=== PATIENT | female | born 1980 | race Caucasian/White ===

== ENCOUNTER 2018-07-20 17:55 | Inpatient (IN) | payer MEDICAID ==
[2018-07-20] MEDS ORDERED: LACTATED RINGERS 500 ML IV ONE (18:13)
--- NOTE | 2018-07-20 22:26 | Ultrasound Report ---
PROCEDURE: US OB LIMITED TECHNIQUE: PROCEDURE: US OB LIMITED TECHNIQUE: Real-time limited sonographic examination was performed for evaluation of placenta and am niotic fluid for each fetus with image documentation (1 or more fetuses). HISTORY: labor COMPARISONS: None . FINDINGS: There is a twin intrauterine gestation Fetus A: Transverse lie with head to maternal left. heart rate is 1 56 bpm. Placenta is posterior with grade 1 maturity. There is no evidence of placenta previa or placental abruption. Amniotic fluid index is 7.0 cm. Fetus B: lie is variable between cephalic and transverse with head to maternal right. heart rate is 142 bpm. Placenta Is anterior. There is no evidence of placenta previa or placental abruption with grade 2 maturity. Amniotic fluid index is 5.3 cm. IMPRESSION: Twin intrauterine gestation without evidence of placenta previa or placental abruption. Amniotic fluid index is within normal limits for both fetuses. This document is electronically signed by Juan Pablo Khan MD., July 20 2018 10:24:09 PM ET
--- NOTE | 2018-07-20 22:28 | Ultrasound Report ---
PROCEDURE: US OB BPP WO NON-STRESS TECHNIQUE: Sonographic evaluation for breathing, movement, tone, and amniotic flui d volume was performed. HISTORY: Rule out SROM COMPARISONS: None . FINDINGS: FETUS Twin intrauterine gestation is noted. Twin A findings: Amniotic fluid volume Normal-score 2. At least one vertical pocket >2 cm or more in vertical axis . breathing: Normal-score 2 . movement: Normal-score 2 . tone: Normal-score 2 . Score: 8 of 8 . IMPRESSION: Normal biophysical profile Twin A . This document is electronically signed by Juan Pablo Khan MD., July 20 2018 10:25:59 PM ET
--- NOTE | 2018-07-20 22:30 | Ultrasound Report ---
PROCEDURE: US OB BPP EA ADD EXAM TECHNIQUE: Sonographic evaluation for breathing, movement, tone, and amniotic flui d volume was performed. HISTORY: Rule out SROM COMPARISONS: None . FINDINGS: FETUS Twin intrauterine gestation Twin B findings: Amniotic fluid volume Normal-score 2. At least one vertical pocket >2 cm or more in vertical axis . breathing: Normal-score 2 . movement: Normal-score 2 . tone: Normal-score 2 . Score: 8 of 8 . IMPRESSION: Normal biophysical profile Twin B . This document is electronically signed by Juan Pablo Khan MD., July 20 2018 10:28:32 PM ET
[2018-07-20] MEDS ORDERED: ZOFRAN IV PRN (22:34)
[2018-07-20] MEDS ORDERED: AMPICILLIN/NS 2 GM/100 ML 2 GM/100 ML BAG IV ONE (22:34)
[2018-07-20] MEDS ORDERED: MAGNESIUM SULFATE 4GM/100ML 4 GM/100 ML BAG IV ONE (22:34)
[2018-07-20] MEDS ORDERED: SENOKOT S PO PRN (22:34)
[2018-07-20] MEDS ORDERED: COLACE PO PRN (22:34)
--- NOTE | 2018-07-20 22:46 | History and Physical Report ---
History of Present Illness Date of examination: 07/20/18 Chief complaint: Cervical dilatation History of present illness: Pt is a 37yo HF EDC 10/23/18; EGA 26 3/7 weeks Twin gestation presents from [facility] [employer] office for advanced cervical dilatation - 4cm. She is sent to receive IV antibiotics, steroids and IV Magnesium sulfate. records are not available at this time. Past History Past Medical History: no pertinent history Past Surgical History: section Social history: no significant social history, - Obstetrical History : 6 Medications and Allergies Allergies Allergy/AdvReac Type Severity Reaction Status Date / Time No Known Allergies Allergy Unverified 07/20/18 18:13 Active Meds: Active Medications Acetaminophen (Tylenol) 650 mg PO Q4H PRN PRN Reason: Pain MILD(1-3)/Fever >100.5/HEWITT Dexamethasone (Decadron) 6 mg IM Q12HR TANJA Stop: 07/22/18 10:01 Docusate Sodium (Colace) 100 mg PO Q12H PRN PRN Reason: Constipation Ampicillin Sodium (Ampicillin/Ns 1 Gm/50 Ml) 1 gm in 50 mls @ 100 mls/hr IV Q4HR TANJA; Protocol Ampicillin Sodium (Polycillin/Ns 2 Gm/100 Ml) 2 gm in 100 mls @ 100 mls/hr IV ONCE ONE; Protocol Stop: 07/20/18 23:33 Lactated Ringer's (Lactated Ringers) 1,000 mls @ 125 mls/hr IV DIRECT TANJA Magnesium Sulfate (Magnesium Sulfate 40gm/1000ml) 40 gm in 1,000 mls @ 50 mls/hr IV DIRECT TANJA Magnesium Sulfate (Magnesium Sulfate 4gm/100ml) 4 gm in 100 mls @ 300 mls/hr IV ONCE ONE Stop: 07/20/18 22:53 Multivitamins/Iron/Calcium ( Vitamin) 1 each PO QDAY TANJA Ondansetron HCl (Zofran) 4 mg IV Q6H PRN PRN Reason: Nausea And Vomiting Senna/Docusate Sodium (Senokot S) 2 tab PO Q12H PRN PRN Reason: Laxative Effect Simethicone (Mylicon) 80 mg PO Q6H PRN PRN Reason: Gas pain Review of Systems All systems: negative - Vital Signs Vital signs: Vital Signs Pulse BP 92 H 120/57 03/13/19 18:23 07/20/18 18:23 Temp Pulse Resp BP Pulse Ox 98.5 F 95 H 18 113/57 07/20/18 21:05 07/20/18 21:04 07/20/18 21:05 07/20/18 21:04 - Physical Exam Cardiovascular: Regular rate Abdomen: Positive: normal appearance, soft Genitourinary (Female): Positive: normal external genitalia - Obstetrical FHR: category 1 Uterine Contraction Monitor Mode: External Cervical Dilatation: 4 (in office) Results Result Diagrams: 07/20/18 21:20 All other labs normal. Ultrasound: report reviewed Assessment and Plan - Patient Problems (1) 26 weeks gestation of Onset Date: 07/20/18 Current Visit: Yes Status: Acute Plan to address problem: A: IUP @ 26 3/7 weeks Twin gestation Advanced cervical dilatation P: Admit to L&D for IV hydration, IV Magnesium sulfate, IV Antibiotics and Steroids Obtain [facility] consultation Obtain records (2) Twin gestation in third trimester Onset Date: 07/20/18 Current Visit: Yes Status: Acute Qualifiers: Multiple gestation type: unable to determine placenta and amniotic sac number Qualified Code(s): O30.093 - Twin , unable to determine number of placenta and number of amniotic sacs, third trimester
[2018-07-20 22:48] LABS: Hematocrit 30.6 % (30.3-42.9); Hemoglobin 10.5 gm/dl (10.1-14.3); Mean Corpuscular HGB Conc 34 % (30-34); Mean Corpuscular Volume 95 fl (79-97); Platelet Count 298 K/mm3 (140-440); Red Blood Count 3.21 M/mm3 (3.65-5.03); Red Cell Distribution Width 13.3 % (13.2-15.2)
[2018-07-20] MEDS ORDERED: MAGNESIUM SULFATE 40GM/1000ML 40 GM/1,000 ML BAG IV SCH (23:00)
[2018-07-20] MEDS: DECADRON IM SCH (23:16)
[2018-07-21 03:13] LABS: Bilirubin,Urine NEG (Negative); Blood,Urine MOD (Negative); Color,Urine Yellow (Yellow); Mucus,Urine 1+ /HPF; Protein,Urine <15 mg/dL mg/dL (Negative); Urobilinogen,Urine < 2.0 mg/dL (<2.0)
[2018-07-21] MEDS: AMPICILLIN/NS 1 GM/50 ML 1 GM/50 ML BAG IV SCH ×5 (03:34→18:20)
[2018-07-21] MEDS: LACTATED RINGERS 1,000 ML IV SCH (05:40)
--- NOTE | 2018-07-21 09:33 | Progress Note ---
Assessment and Plan - Patient Problems (1) 26 weeks gestation of Onset Date: 07/20/18 Current Visit: Yes Status: Acute Plan to address problem: lung maturity- last dose of steroids due today. Stop magnesium once steroids complete. Ampicillin for GBS prophylaxis. Continue bedrest. [facility] consult pending (2) Twin gestation in third trimester Onset Date: 07/20/18 Current Visit: Yes Status: Acute Qualifiers: Multiple gestation type: unable to determine placenta and amniotic sac number Qualified Code(s): O30.093 - Twin , unable to determine number of placenta and number of amniotic sacs, third trimester Plan to address problem: Malpresentation. transverse/transverse [employer] patient on recommended mode of delivery via csection due to the risk of head entrapment, brachial plexus delivery. Subjective - Subjective Principal diagnosis: labor Interval history: 37yo 26 4/7 wks twin gestation managed for labor. She is receiving magnesium sulfate for neuroprotection, steroids and IV antibiotics for GBS prophylaxis. She reports good twin movement, no loss of fluid and no vaginal bleeding. She denies contractions. Objective - Vital Signs Vital Signs: Vital Signs - 12hr 07/21/18 07/21/18 07/21/18 00:00 01:00 02:00 Temperature 98.3 F Pulse Rate 96 H 100 H 100 H Respiratory 18 Rate Blood Pressure 115/59 118/58 117/59 Blood Pressure [Left] O2 Sat by Pulse Oximetry 07/21/18 07/21/18 07/21/18 03:00 03:38 03:39 Temperature Pulse Rate 96 H 97 H 95 H Respiratory Rate Blood Pressure 108/54 Blood Pressure [Left] O2 Sat by Pulse 94 95 Oximetry 07/21/18 07/21/18 07/21/18 03:44 03:49 03:50 Temperature Pulse Rate 99 H 97 H 98 H Respiratory Rate Blood Pressure Blood Pressure [Left] O2 Sat by Pulse 94 95 94 Oximetry 07/21/18 07/21/18 07/21/18 03:54 03:55 03:59 Temperature Pulse Rate 103 H 98 H 98 H Respiratory Rate Blood Pressure Blood Pressure [Left] O2 Sat by Pulse 95 94 94 Oximetry 07/21/18 07/21/18 07/21/18 04:00 04:01 04:04 Temperature Pulse Rate 96 H 95 H 94 H Respiratory Rate Blood Pressure 115/56 Blood Pressure [Left] O2 Sat by Pulse 93 94 Oximetry 07/21/18 07/21/18 07/21/18 04:05 04:09 04:14 Temperature Pulse Rate 95 H 99 H 96 H Respiratory Rate Blood Pressure Blood Pressure [Left] O2 Sat by Pulse 94 94 93 Oximetry 07/21/18 07/21/18 07/21/18 04:15 04:19 04:24 Temperature 97.9 F Pulse Rate 97 H 90 92 H Respiratory 16 Rate Blood Pressure Blood Pressure [Left] O2 Sat by Pulse 94 94 94 Oximetry 07/21/18 07/21/18 07/21/18 04:29 04:32 04:34 Temperature Pulse Rate 87 92 H 90 Respiratory Rate Blood Pressure Blood Pressure [Left] O2 Sat by Pulse 94 94 93 Oximetry 07/21/18 07/21/18 07/21/18 04:39 04:44 04:48 Temperature Pulse Rate 89 86 95 H Respiratory Rate Blood Pressure Blood Pressure [Left] O2 Sat by Pulse 94 94 94 Oximetry 07/21/18 07/21/18 07/21/18 04:49 04:54 04:59 Temperature Pulse Rate 95 H 94 H 94 H Respiratory Rate Blood Pressure Blood Pressure [Left] O2 Sat by Pulse 94 94 93 Oximetry 07/21/18 07/21/18 07/21/18 05:01 05:04 05:09 Temperature Pulse Rate 95 H 92 H 93 H Respiratory Rate Blood Pressure 111/52 Blood Pressure [Left] O2 Sat by Pulse 93 94 93 Oximetry 07/21/18 07/21/18 07/21/18 05:14 05:19 05:24 Temperature Pulse Rate 93 H 93 H 94 H Respiratory Rate Blood Pressure Blood Pressure [Left] O2 Sat by Pulse 94 93 93 Oximetry 07/21/18 07/21/18 07/21/18 05:27 05:29 05:34 Temperature Pulse Rate 96 H 93 H 94 H Respiratory Rate Blood Pressure Blood Pressure [Left] O2 Sat by Pulse 94 93 93 Oximetry 07/21/18 07/21/18 07/21/18 05:36 05:39 05:43 Temperature Pulse Rate 99 H 93 H 95 H Respiratory Rate Blood Pressure Blood Pressure [Left] O2 Sat by Pulse 94 96 94 Oximetry 07/21/18 07/21/18 07/21/18 05:44 05:49 05:54 Temperature Pulse Rate 95 H 95 H 95 H Respiratory Rate Blood Pressure Blood Pressure [Left] O2 Sat by Pulse 94 94 94 Oximetry 07/21/18 07/21/18 07/21/18 05:57 05:59 06:02 Temperature Pulse Rate 97 H 96 H 97 H Respiratory Rate Blood Pressure 113/56 Blood Pressure [Left] O2 Sat by Pulse 94 94 94 Oximetry 07/21/18 07/21/18 07/21/18 06:04 06:09 06:10 Temperature Pulse Rate 94 H 102 H 93 H Respiratory Rate Blood Pressure Blood Pressure [Left] O2 Sat by Pulse 93 96 94 Oximetry 07/21/18 07/21/18 07/21/18 06:14 06:17 06:19 Temperature Pulse Rate 97 H 97 H 96 H Respiratory Rate Blood Pressure Blood Pressure [Left] O2 Sat by Pulse 95 94 95 Oximetry 07/21/18 07/21/18 07/21/18 06:24 06:29 06:31 Temperature Pulse Rate 97 H 95 H 94 H Respiratory Rate Blood Pressure Blood Pressure [Left] O2 Sat by Pulse 94 94 94 Oximetry 07/21/18 07/21/18 07/21/18 06:34 06:36 06:39 Temperature Pulse Rate 96 H 94 H 97 H Respiratory Rate Blood Pressure Blood Pressure [Left] O2 Sat by Pulse 95 94 94 Oximetry 07/21/18 07/21/18 07/21/18 06:42 06:44 06:48 Temperature Pulse Rate 97 H 97 H 95 H Respiratory Rate Blood Pressure Blood Pressure [Left] O2 Sat by Pulse 94 94 94 Oximetry 07/21/18 07/21/18 07/21/18 06:49 06:53 06:54 Temperature Pulse Rate 98 H 101 H 102 H Respiratory Rate Blood Pressure Blood Pressure [Left] O2 Sat by Pulse 94 94 93 Oximetry 07/21/18 07/21/18 07/21/18 06:58 06:59 07:01 Temperature Pulse Rate 99 H 101 H 104 H Respiratory Rate Blood Pressure 97/48 Blood Pressure [Left] O2 Sat by Pulse 94 94 Oximetry 07/21/18 07/21/18 07/21/18 07:04 07:09 07:10 Temperature Pulse Rate 103 H 103 H 101 H Respiratory Rate Blood Pressure Blood Pressure [Left] O2 Sat by Pulse 94 94 94 Oximetry 07/21/18 07/21/18 07/21/18 07:14 07:15 07:19 Temperature Pulse Rate 103 H 104 H 106 H Respiratory Rate Blood Pressure Blood Pressure [Left] O2 Sat by Pulse 94 94 93 Oximetry 07/21/18 07/21/18 07/21/18 07:23 07:24 07:28 Temperature Pulse Rate 105 H 107 H 107 H Respiratory Rate Blood Pressure Blood Pressure [Left] O2 Sat by Pulse 94 95 94 Oximetry 07/21/18 07/21/18 07/21/18 07:29 07:33 07:34 Temperature Pulse Rate 109 H 105 H 105 H Respiratory Rate Blood Pressure Blood Pressure [Left] O2 Sat by Pulse 94 94 94 Oximetry 07/21/18 07/21/18 07/21/18 07:39 07:44 07:47 Temperature Pulse Rate 103 H 105 H 103 H Respiratory Rate Blood Pressure Blood Pressure [Left] O2 Sat by Pulse 94 93 94 Oximetry 07/21/18 07/21/18 07/21/18 07:49 07:50 07:52 Temperature 98.2 F Pulse Rate 105 H 105 H 102 H Respiratory 18 Rate Blood Pressure Blood Pressure 97/48 [Left] O2 Sat by Pulse 94 99 93 Oximetry 07/21/18 07/21/18 07/21/18 07:54 07:57 07:59 Temperature Pulse Rate 105 H 104 H 106 H Respiratory Rate Blood Pressure Blood Pressure [Left] O2 Sat by Pulse 95 94 94 Oximetry 07/21/18 07/21/18 07/21/18 08:01 08:04 08:06 Temperature Pulse Rate 103 H 105 H 105 H Respiratory Rate Blood Pressure 106/53 Blood Pressure [Left] O2 Sat by Pulse 94 93 Oximetry 07/21/18 07/21/18 07/21/18 08:09 08:12 08:14 Temperature Pulse Rate 105 H 110 H 110 H Respiratory Rate Blood Pressure Blood Pressure [Left] O2 Sat by Pulse 95 94 94 Oximetry 07/21/18 07/21/18 07/21/18 08:19 08:24 08:29 Temperature Pulse Rate 105 H 105 H 104 H Respiratory Rate Blood Pressure Blood Pressure [Left] O2 Sat by Pulse 96 97 96 Oximetry 07/21/18 07/21/18 07/21/18 08:34 08:39 08:44 Temperature Pulse Rate 108 H 108 H 99 H Respiratory Rate Blood Pressure Blood Pressure [Left] O2 Sat by Pulse 95 94 95 Oximetry 07/21/18 07/21/18 07/21/18 08:45 08:49 08:51 Temperature Pulse Rate 104 H 101 H 98 H Respiratory Rate Blood Pressure Blood Pressure [Left] O2 Sat by Pulse 94 93 93 Oximetry 07/21/18 07/21/18 07/21/18 08:54 08:59 09:00 Temperature Pulse Rate 99 H 95 H 100 H Respiratory Rate Blood Pressure Blood Pressure [Left] O2 Sat by Pulse 94 93 90 Oximetry 07/21/18 07/21/18 07/21/18 09:01 09:04 09:06 Temperature Pulse Rate 96 H 94 H 95 H Respiratory Rate Blood Pressure 105/56 Blood Pressure [Left] O2 Sat by Pulse 93 94 Oximetry 07/21/18 07/21/18 07/21/18 09:09 09:14 09:19 Temperature Pulse Rate 97 H 92 H 88 Respiratory Rate Blood Pressure Blood Pressure [Left] O2 Sat by Pulse 96 94 94 Oximetry 07/21/18 07/21/18 09:24 09:29 Temperature Pulse Rate 92 H 89 Respiratory Rate Blood Pressure Blood Pressure [Left] O2 Sat by Pulse 94 94 Oximetry - Labs Labs: Abnormal Labs 07/20/18 07/21/18 07/21/18 21:20 00:52 05:48 RBC 3.21 L MCH 33 H Magnesium 3.40 H 4.10 H Laboratory Results - last 24 hr 07/20/18 07/20/18 07/20/18 01:59 18:00 21:20 WBC 9.9 RBC 3.21 L Hgb 10.5 Hct 30.6 MCV 95 MCH 33 H MCHC 34 RDW 13.3 Plt Count 298 Magnesium Urine Color Yellow Urine Turbidity Clear Urine pH 6.0 Ur Specific [place] 1.016 Urine Protein <15 mg/dl Urine Glucose (UA) Neg Urine Ketones Neg Urine Blood Mod Urine Nitrite Neg Urine Bilirubin Neg Urine Urobilinogen < 2.0 Ur Leukocyte Esterase Neg Urine WBC (Auto) 1.0 Urine RBC (Auto) 81.0 U Epithel Cells (Auto) < 1.0 Urine Mucus 1+ Fibronectin Positive Blood Type Antibody Screen 07/20/18 07/21/18 07/21/18 21:20 00:52 05:48 WBC RBC Hgb Hct MCV MCH MCHC RDW Plt Count Magnesium 3.40 H 4.10 H Urine Color Urine Turbidity Urine pH Ur Specific [place] Urine Protein Urine Glucose (UA) Urine Ketones Urine Blood Urine Nitrite Urine Bilirubin Urine Urobilinogen Ur Leukocyte Esterase Urine WBC (Auto) Urine RBC (Auto) U Epithel Cells (Auto) Urine Mucus Fibronectin Blood Type O NEGATIVE Antibody Screen Negative
[2018-07-21] MEDS: PRENATAL VITAMIN PO SCH (10:40)
[2018-07-21] MEDS: DECADRON IM SCH (11:34)
[2018-07-22] MEDS: AMPICILLIN/NS 1 GM/50 ML 1 GM/50 ML BAG IV SCH ×6 (00:16→22:40)
[2018-07-22] MEDS: DECADRON IM SCH ×2 (00:17→11:59)
[2018-07-22] MEDS: LACTATED RINGERS 1,000 ML IV SCH ×2 (00:18→21:29)
[2018-07-22] MEDS: PRENATAL VITAMIN PO SCH (09:50)
--- NOTE | 2018-07-22 10:34 | Progress Note ---
Assessment and Plan - Patient Problems (1) 26 weeks gestation of Onset Date: 07/20/18 Current Visit: Yes Status: Acute Plan to address problem: lung maturity- last dose of steroids due today. Stop magnesium once steroids complete. Ampicillin for GBS prophylaxis. Continue bedrest. (2) Twin gestation in third trimester Onset Date: 07/20/18 Current Visit: Yes Status: Acute Qualifiers: Multiple gestation type: unable to determine placenta and amniotic sac number Qualified Code(s): O30.093 - Twin , unable to determine number of placenta and number of amniotic sacs, third trimester Plan to address problem: Continue external monitoring - Q8hrs. (3) Malpresentation of fetus Current Visit: Yes Status: Acute Plan to address problem: Malpresentation. transverse/transverse [facility] patient on recommended mode of delivery via csection due to the risk of head entrapment, brachial plexus injury, etc. (4) Anemia affecting Current Visit: Yes Status: Acute Plan to address problem: Start iron sulfate supplementation. Subjective - Subjective Principal diagnosis: labor Interval history: 37yo 26 5/7 wks twin gestation managed for labor. She is receiving magnesium sulfate for neuroprotection, steroids and IV antibiotics for GBS prophylaxis. She reports good twin movement, no loss of fluid and no vaginal bleeding. She denies contractions. She is a patient at [facility] with late entry to care at 18 weeks with 2 appointments. Objective - Vital Signs Vital Signs: Vital Signs - 12hr 07/21/18 07/21/18 07/21/18 22:35 22:40 22:45 Temperature Pulse Rate 75 82 87 Respiratory Rate Blood Pressure Blood Pressure [Left] O2 Sat by Pulse 95 95 97 Oximetry 07/21/18 07/21/18 07/21/18 22:50 22:55 23:00 Temperature Pulse Rate 89 85 85 Respiratory Rate Blood Pressure Blood Pressure [Left] O2 Sat by Pulse 97 97 97 Oximetry 07/21/18 07/21/18 07/21/18 23:05 23:10 23:11 Temperature Pulse Rate 90 88 85 Respiratory Rate Blood Pressure Blood Pressure [Left] O2 Sat by Pulse 96 96 94 Oximetry 07/21/18 07/21/18 07/21/18 23:15 23:20 23:24 Temperature Pulse Rate 86 88 84 Respiratory Rate Blood Pressure Blood Pressure [Left] O2 Sat by Pulse 95 96 94 Oximetry 07/21/18 07/21/18 07/21/18 23:25 23:30 23:36 Temperature Pulse Rate 83 86 96 H Respiratory Rate Blood Pressure Blood Pressure [Left] O2 Sat by Pulse 94 96 96 Oximetry 07/21/18 07/21/18 07/21/18 23:41 23:46 23:51 Temperature Pulse Rate 88 86 85 Respiratory Rate Blood Pressure Blood Pressure [Left] O2 Sat by Pulse 94 96 96 Oximetry 07/21/18 07/21/18 07/22/18 23:56 23:58 00:01 Temperature Pulse Rate 87 93 H 97 H Respiratory Rate Blood Pressure Blood Pressure [Left] O2 Sat by Pulse 96 94 98 Oximetry 07/22/18 07/22/18 07/22/18 00:06 00:11 00:16 Temperature Pulse Rate 87 84 85 Respiratory Rate Blood Pressure Blood Pressure [Left] O2 Sat by Pulse 96 96 96 Oximetry 07/22/18 07/22/18 07/22/18 00:22 00:27 00:30 Temperature 97.8 F Pulse Rate 86 87 82 Respiratory 16 Rate Blood Pressure Blood Pressure 114/62 [Left] O2 Sat by Pulse 98 98 Oximetry 07/22/18 07/22/18 07/22/18 00:32 00:37 00:42 Temperature Pulse Rate 88 85 86 Respiratory Rate Blood Pressure Blood Pressure [Left] O2 Sat by Pulse 98 95 97 Oximetry 07/22/18 07/22/18 07/22/18 00:47 00:51 00:56 Temperature Pulse Rate 86 83 84 Respiratory Rate Blood Pressure Blood Pressure [Left] O2 Sat by Pulse 96 99 99 Oximetry 07/22/18 07/22/18 07/22/18 01:01 01:06 01:11 Temperature Pulse Rate 82 83 90 Respiratory Rate Blood Pressure Blood Pressure [Left] O2 Sat by Pulse 97 98 96 Oximetry 07/22/18 07/22/18 07/22/18 01:16 01:17 01:22 Temperature Pulse Rate 95 H 95 H 85 Respiratory Rate Blood Pressure Blood Pressure [Left] O2 Sat by Pulse 95 93 98 Oximetry 07/22/18 07/22/18 07/22/18 01:26 01:32 01:36 Temperature Pulse Rate 85 81 79 Respiratory Rate Blood Pressure Blood Pressure [Left] O2 Sat by Pulse 99 100 99 Oximetry 07/22/18 07/22/18 07/22/18 01:42 01:46 01:51 Temperature Pulse Rate 78 80 79 Respiratory Rate Blood Pressure Blood Pressure [Left] O2 Sat by Pulse 99 97 97 Oximetry 07/22/18 07/22/18 07/22/18 01:57 02:02 02:06 Temperature Pulse Rate 80 79 81 Respiratory Rate Blood Pressure Blood Pressure [Left] O2 Sat by Pulse 96 97 98 Oximetry 07/22/18 07/22/18 07/22/18 02:11 02:16 02:21 Temperature Pulse Rate 81 81 86 Respiratory Rate Blood Pressure Blood Pressure [Left] O2 Sat by Pulse 96 95 96 Oximetry 07/22/18 07/22/18 07/22/18 02:26 02:32 02:35 Temperature Pulse Rate 83 83 83 Respiratory Rate Blood Pressure Blood Pressure [Left] O2 Sat by Pulse 95 95 94 Oximetry 07/22/18 07/22/18 07/22/18 02:36 02:40 02:41 Temperature Pulse Rate 82 82 81 Respiratory Rate Blood Pressure Blood Pressure [Left] O2 Sat by Pulse 94 94 94 Oximetry 07/22/18 07/22/18 07/22/18 02:47 02:51 02:54 Temperature Pulse Rate 84 83 81 Respiratory Rate Blood Pressure Blood Pressure [Left] O2 Sat by Pulse 94 94 94 Oximetry 07/22/18 07/22/18 07/22/18 02:56 03:01 03:06 Temperature Pulse Rate 80 83 80 Respiratory Rate Blood Pressure Blood Pressure [Left] O2 Sat by Pulse 95 94 93 Oximetry 07/22/18 07/22/18 07/22/18 03:11 03:16 03:20 Temperature Pulse Rate 83 82 85 Respiratory Rate Blood Pressure Blood Pressure [Left] O2 Sat by Pulse 94 94 94 Oximetry 07/22/18 07/22/18 07/22/18 03:22 03:26 03:32 Temperature Pulse Rate 85 89 82 Respiratory Rate Blood Pressure 111/56 Blood Pressure [Left] O2 Sat by Pulse 95 96 94 Oximetry 07/22/18 07/22/18 07/22/18 03:33 03:37 03:39 Temperature Pulse Rate 82 80 81 Respiratory Rate Blood Pressure Blood Pressure [Left] O2 Sat by Pulse 94 94 94 Oximetry 07/22/18 07/22/18 07/22/18 03:42 03:46 03:49 Temperature Pulse Rate 78 79 80 Respiratory Rate Blood Pressure Blood Pressure [Left] O2 Sat by Pulse 94 95 94 Oximetry 07/22/18 07/22/18 07/22/18 03:52 03:57 04:02 Temperature Pulse Rate 96 H 98 H 92 H Respiratory Rate Blood Pressure Blood Pressure [Left] O2 Sat by Pulse 97 97 97 Oximetry 07/22/18 07/22/18 07/22/18 04:07 04:11 04:17 Temperature Pulse Rate 96 H 96 H 96 H Respiratory Rate Blood Pressure Blood Pressure [Left] O2 Sat by Pulse 98 96 98 Oximetry 07/22/18 07/22/18 07/22/18 04:22 04:24 04:26 Temperature Pulse Rate 79 83 89 Respiratory Rate Blood Pressure 114/62 Blood Pressure [Left] O2 Sat by Pulse 97 96 Oximetry 07/22/18 07/22/18 07/22/18 04:30 04:31 04:37 Temperature Pulse Rate 72 91 H 90 Respiratory 16 Rate Blood Pressure Blood Pressure 118/60 [Left] O2 Sat by Pulse 97 96 98 Oximetry 07/22/18 07/22/18 07/22/18 04:42 04:47 04:52 Temperature Pulse Rate 88 88 87 Respiratory Rate Blood Pressure Blood Pressure [Left] O2 Sat by Pulse 98 98 97 Oximetry 07/22/18 07/22/18 07/22/18 04:57 05:02 05:07 Temperature Pulse Rate 83 82 83 Respiratory Rate Blood Pressure Blood Pressure [Left] O2 Sat by Pulse 96 95 95 Oximetry 07/22/18 07/22/18 07/22/18 05:12 05:17 05:22 Temperature Pulse Rate 84 87 88 Respiratory Rate Blood Pressure Blood Pressure [Left] O2 Sat by Pulse 96 96 95 Oximetry 07/22/18 07/22/18 07/22/18 05:23 05:24 05:27 Temperature Pulse Rate 82 86 90 Respiratory Rate Blood Pressure 110/58 Blood Pressure [Left] O2 Sat by Pulse 94 96 Oximetry 07/22/18 07/22/18 07/22/18 05:32 05:37 05:42 Temperature Pulse Rate 84 84 86 Respiratory Rate Blood Pressure Blood Pressure [Left] O2 Sat by Pulse 95 97 95 Oximetry 07/22/18 07/22/18 07/22/18 05:47 05:52 05:57 Temperature Pulse Rate 88 84 83 Respiratory Rate Blood Pressure Blood Pressure [Left] O2 Sat by Pulse 98 97 96 Oximetry 07/22/18 07/22/18 07/22/18 06:02 06:07 06:12 Temperature Pulse Rate 82 83 82 Respiratory Rate Blood Pressure Blood Pressure [Left] O2 Sat by Pulse 96 98 97 Oximetry 07/22/18 07/22/18 07/22/18 06:17 06:22 06:24 Temperature Pulse Rate 80 82 82 Respiratory Rate Blood Pressure 97/49 Blood Pressure [Left] O2 Sat by Pulse 97 97 Oximetry 07/22/18 07/22/18 07/22/18 06:27 06:32 06:37 Temperature Pulse Rate 82 81 80 Respiratory Rate Blood Pressure Blood Pressure [Left] O2 Sat by Pulse 96 96 96 Oximetry 07/22/18 07/22/18 07/22/18 06:42 06:47 06:52 Temperature Pulse Rate 81 77 83 Respiratory Rate Blood Pressure Blood Pressure [Left] O2 Sat by Pulse 97 97 96 Oximetry 07/22/18 07/22/18 07/22/18 06:57 07:02 07:07 Temperature Pulse Rate 87 91 H 89 Respiratory Rate Blood Pressure Blood Pressure [Left] O2 Sat by Pulse 97 99 96 Oximetry 07/22/18 07/22/18 07/22/18 07:12 07:17 07:22 Temperature Pulse Rate 89 82 86 Respiratory Rate Blood Pressure Blood Pressure [Left] O2 Sat by Pulse 97 99 99 Oximetry 07/22/18 07/22/18 07/22/18 07:24 07:27 07:32 Temperature Pulse Rate 79 81 86 Respiratory Rate Blood Pressure 117/59 Blood Pressure [Left] O2 Sat by Pulse 100 100 Oximetry 07/22/18 07/22/18 07/22/18 07:37 07:42 07:46 Temperature Pulse Rate 83 83 82 Respiratory Rate Blood Pressure Blood Pressure [Left] O2 Sat by Pulse 100 98 97 Oximetry 07/22/18 07/22/18 07/22/18 07:49 07:52 07:57 Temperature Pulse Rate 83 83 84 Respiratory Rate Blood Pressure 104/48 Blood Pressure [Left] O2 Sat by Pulse 96 98 Oximetry 07/22/18 07/22/18 07/22/18 08:02 08:07 08:12 Temperature Pulse Rate 85 83 82 Respiratory Rate Blood Pressure Blood Pressure [Left] O2 Sat by Pulse 97 98 98 Oximetry 07/22/18 07/22/18 07/22/18 08:17 08:22 08:24 Temperature Pulse Rate 89 84 82 Respiratory Rate Blood Pressure 109/57 Blood Pressure [Left] O2 Sat by Pulse 100 99 Oximetry 07/22/18 07/22/18 07/22/18 08:27 08:32 08:37 Temperature Pulse Rate 84 81 84 Respiratory Rate Blood Pressure Blood Pressure [Left] O2 Sat by Pulse 99 98 96 Oximetry 07/22/18 07/22/18 07/22/18 08:42 08:47 08:52 Temperature Pulse Rate 85 83 82 Respiratory Rate Blood Pressure Blood Pressure [Left] O2 Sat by Pulse 95 96 95 Oximetry 07/22/18 07/22/18 07/22/18 08:57 09:02 09:07 Temperature Pulse Rate 81 82 81 Respiratory Rate Blood Pressure Blood Pressure [Left] O2 Sat by Pulse 96 96 96 Oximetry 07/22/18 07/22/18 07/22/18 09:12 09:17 09:19 Temperature Pulse Rate 84 90 84 Respiratory Rate Blood Pressure Blood Pressure [Left] O2 Sat by Pulse 97 97 94 Oximetry 07/22/18 07/22/18 07/22/18 09:22 09:24 09:27 Temperature Pulse Rate 80 86 88 Respiratory Rate Blood Pressure 112/56 Blood Pressure [Left] O2 Sat by Pulse 97 97 Oximetry 07/22/18 07/22/18 07/22/18 09:32 09:37 09:42 Temperature Pulse Rate 85 84 87 Respiratory Rate Blood Pressure Blood Pressure [Left] O2 Sat by Pulse 96 95 96 Oximetry 07/22/18 07/22/18 07/22/18 09:47 09:52 09:57 Temperature Pulse Rate 83 84 85 Respiratory Rate Blood Pressure Blood Pressure [Left] O2 Sat by Pulse 97 96 96 Oximetry 07/22/18 07/22/18 07/22/18 10:02 10:07 10:12 Temperature Pulse Rate 82 81 86 Respiratory Rate Blood Pressure Blood Pressure [Left] O2 Sat by Pulse 98 97 99 Oximetry 07/22/18 07/22/18 07/22/18 10:17 10:22 10:24 Temperature Pulse Rate 94 H 80 80 Respiratory Rate Blood Pressure 104/51 Blood Pressure [Left] O2 Sat by Pulse 99 99 Oximetry 07/22/18 07/22/18 10:27 10:32 Temperature Pulse Rate 82 79 Respiratory Rate Blood Pressure Blood Pressure [Left] O2 Sat by Pulse 99 99 Oximetry - Exam Cervical Dilatation: 6 Cervical Effacement Percentage: 70 station: -3 - Labs Labs: Abnormal Labs 07/20/18 07/21/18 07/21/18 21:20 00:52 05:48 RBC 3.21 L MCH 33 H Magnesium 3.40 H 4.10 H 07/21/18 07/21/18 12:39 18:24 RBC MCH Magnesium 4.50 H 4.80 H Laboratory Results - last 24 hr 07/20/18 07/21/18 07/21/18 21:20 12:39 18:24 Magnesium 4.50 H 4.80 H RPR Nonreactive
[2018-07-22] MEDS: TYLENOL PO PRN ×2 (15:12→21:49)
[2018-07-22] MEDS: FEOSOL PO SCH (21:50)
[2018-07-23] MEDS: AMPICILLIN/NS 1 GM/50 ML 1 GM/50 ML BAG IV SCH ×6 (02:39→22:30)
[2018-07-23] MEDS: LACTATED RINGERS 1,000 ML IV SCH (06:44)
[2018-07-23] MEDS: PRENATAL VITAMIN PO SCH (10:22)
[2018-07-23] MEDS: FEOSOL PO SCH ×2 (10:23→22:30)
--- NOTE | 2018-07-23 14:53 | Progress Note ---
Assessment and Plan - Patient Problems (1) 26 weeks gestation of Onset Date: 07/20/18 Current Visit: Yes Status: Acute Plan to address problem: lung maturity- steroid course complete Ampicillin for GBS prophylaxis. Collect GBS cultures and if negative will discontinue antibiotics. Continue bedrest. APA consult done. Continue expectant management. (2) Twin gestation in third trimester Onset Date: 07/20/18 Current Visit: Yes Status: Acute Qualifiers: Multiple gestation type: unable to determine placenta and amniotic sac number Qualified Code(s): O30.093 - Twin , unable to determine number of placenta and number of amniotic sacs, third trimester Plan to address problem: Malpresentation. 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 Subjective - Subjective Principal diagnosis: labor Interval history: 37yo 26 4/7 wks twin gestation managed for labor. She is receiving magnesium sulfate for neuroprotection, steroids and IV antibiotics for GBS prophylaxis. She reports good twin movement, no loss of fluid and no vaginal bleeding. She denies contractions. Objective - Vital Signs Vital Signs: Vital Signs - 12hr 07/23/18 07/23/18 07/23/18 02:58 03:03 03:08 Temperature Pulse Rate 81 79 78 Respiratory Rate Blood Pressure O2 Sat by Pulse 96 95 95 Oximetry 07/23/18 07/23/18 07/23/18 03:13 03:18 03:23 Temperature Pulse Rate 80 78 74 Respiratory Rate Blood Pressure O2 Sat by Pulse 94 97 93 Oximetry 07/23/18 07/23/18 07/23/18 03:24 03:28 03:33 Temperature Pulse Rate 74 72 81 Respiratory Rate Blood Pressure 87/46 O2 Sat by Pulse 97 97 Oximetry 07/23/18 07/23/18 07/23/18 03:38 03:43 03:48 Temperature Pulse Rate 72 74 74 Respiratory Rate Blood Pressure O2 Sat by Pulse 97 96 96 Oximetry 07/23/18 07/23/18 07/23/18 03:53 03:58 04:03 Temperature Pulse Rate 73 73 83 Respiratory Rate Blood Pressure O2 Sat by Pulse 96 96 97 Oximetry 07/23/18 07/23/18 07/23/18 04:08 04:13 04:18 Temperature Pulse Rate 71 74 72 Respiratory Rate Blood Pressure O2 Sat by Pulse 98 97 97 Oximetry 07/23/18 07/23/18 07/23/18 04:20 04:23 04:24 Temperature 97.8 F Pulse Rate 74 73 Respiratory 16 Rate Blood Pressure 79/43 O2 Sat by Pulse 42 L Oximetry 07/23/18 07/23/18 07/23/18 04:25 05:23 06:25 Temperature 98.4 F Pulse Rate 71 77 Respiratory 16 Rate Blood Pressure 104/53 107/55 O2 Sat by Pulse Oximetry 07/23/18 07/23/18 07/23/18 07:23 10:27 11:24 Temperature Pulse Rate 72 82 81 Respiratory Rate Blood Pressure 95/52 107/51 104/55 O2 Sat by Pulse Oximetry 07/23/18 07/23/18 07/23/18 12:25 13:24 14:24 Temperature Pulse Rate 86 74 74 Respiratory Rate Blood Pressure 127/59 107/55 92/46 O2 Sat by Pulse Oximetry - Labs Labs: Abnormal Labs 07/20/18 07/21/18 07/21/18 21:20 00:52 05:48 RBC 3.21 L MCH 33 H Magnesium 3.40 H 4.10 H 07/21/18 07/21/18 12:39 18:24 RBC MCH Magnesium 4.50 H 4.80 H
--- NOTE | 2018-07-23 16:46 | Consultation ---
History of Present Illness Consult date: 07/23/18 Requesting physician: JERE LEE Reason for consult: contractions History of present illness: 37yo 26 4/7 wks twin gestation managed for labor. She is receiving magnesium sulfate for neuroprotection, steroids and IV antibiotics for GBS prophylaxis. Past History Past Medical History: no pertinent history Past Surgical History: section - Obstetrical History : 6 Medications and Allergies Allergies Allergy/AdvReac Type Severity Reaction Status Date / Time No Known Allergies Allergy Unverified 07/20/18 18:13 Home Medications Medication Instructions Recorded Confirmed Last Taken Type Pnv,Calcium 72/Iron/Folic Acid 1 tab PO DAILY 07/21/18 07/21/18 07/20/18 09:00 History [ Vitamin Plus Low Iron] 1tab Active Meds: Active Medications Acetaminophen (Tylenol) 650 mg PO Q4H PRN PRN Reason: Pain MILD(1-3)/Fever >100.5/HEWITT Last Admin: 07/22/18 21:49 Dose: 650 mg Documented by: Docusate Sodium (Colace) 100 mg PO Q12H PRN PRN Reason: Constipation Ferrous Sulfate (Feosol) 325 mg PO BID [facility] Last Admin: 07/23/18 10:23 Dose: 325 mg Documented by: Ampicillin Sodium (Ampicillin/Ns 1 Gm/50 Ml) 1 gm in 50 mls @ 100 mls/hr IV Q4HR [facility]; Protocol Last Admin: 07/23/18 14:20 Dose: 100 mls/hr Documented by: Lactated Ringer's (Lactated Ringers) 1,000 mls @ 125 mls/hr IV DIRECT TANJA Last Admin: 07/23/18 06:44 Dose: 75 mls/hr Documented by: Magnesium Sulfate (Magnesium Sulfate 40gm/1000ml) 40 gm in 1,000 mls @ 50 mls/hr IV DIRECT [facility] Last Admin: 07/20/18 23:48 Dose: 2 gm/hr, 50 mls/hr Documented by: Multivitamins/Iron/Calcium ( Vitamin) 1 each PO QDAY [facility] Last Admin: 07/23/18 10:22 Dose: 1 each Documented by: Ondansetron HCl (Zofran) 4 mg IV Q6H PRN PRN Reason: Nausea And Vomiting Senna/Docusate Sodium (Senokot S) 2 tab PO Q12H PRN PRN Reason: Laxative Effect Simethicone (Mylicon) 80 mg PO Q6H PRN PRN Reason: Gas pain - Vital Signs Vital signs: Vital Signs Pulse BP 92 H 120/57 07/20/18 18:23 07/20/18 18:23 Temp Pulse Resp BP Pulse Ox 98.5 F 74 16 92/46 42 L 07/23/18 16:00 07/23/18 14:24 07/23/18 04:25 07/23/18 14:24 07/23/18 04:23 Results Result Diagrams: 07/20/18 21:20 All other labs normal. Assessment and Plan ASSESSMENT: IUP AT 26 WEEKS TWIN GESTATION ADVANCED CERVICAL DILATION AGREE WITH STEROIDS FOR LUNG MATURITY MAGNESIUM SULFATE FOR NEUROPROTECTION ANTIBIOTICS FOR PROPHYLAXIS. APA TO FOLLOW.
[2018-07-24] MEDS: AMPICILLIN/NS 1 GM/50 ML 1 GM/50 ML BAG IV SCH ×6 (02:30→22:00)
[2018-07-24] MEDS ORDERED: PROCARDIA*For Tocolysis only ONE (07:38)
--- NOTE | 2018-07-24 07:56 | Event Note ---
Date: 07/24/18 Performed SVE per MD request: /-3/dale raymond.
[2018-07-24] MEDS: FEOSOL PO SCH ×2 (10:46→22:02)
[2018-07-24] MEDS: PRENATAL VITAMIN PO SCH (10:46)
[2018-07-24] MEDS: LACTATED RINGERS 1,000 ML IV SCH (13:33)
[2018-07-24] MEDS: PROCARDIA*For Tocolysis only PO SCH ×2 (14:10→20:30)
--- NOTE | 2018-07-24 15:07 | Progress Note ---
Assessment and Plan - Patient Problems (1) 26 weeks gestation of Onset Date: 07/20/18 Current Visit: Yes Status: Acute (2) Twin gestation in third trimester Onset Date: 07/20/18 Current Visit: Yes Status: Acute Qualifiers: Multiple gestation type: unable to determine placenta and amniotic sac number Qualified Code(s): O30.093 - Twin , unable to determine number of placenta and number of amniotic sacs, third trimester (3) labor Current Visit: Yes Status: Acute Plan to address problem: Start Procardia 10mg PO Q6hrs for tocolysis. Subjective - Subjective Principal diagnosis: labor Interval history: 37yo 26 4/7 wks twin gestation managed for labor. She is receiving magnesium sulfate for neuroprotection, steroids and IV antibiotics for GBS prophylaxis. Today she was noted to have contractions on tocometer. She felt mild contractions. She has had no cervical change 6cm with bulging membranes, -3. Objective - Vital Signs Vital Signs: Vital Signs - 12hr 07/24/18 07/24/18 03:04 08:02 Temperature 98.1 F 98.4 F Pulse Rate 81 Respiratory 16 18 Rate Blood Pressure 113/57 - Exam Cervical Dilatation: 6 station: -3 - Labs Labs: Abnormal Labs 07/20/18 07/21/18 07/21/18 21:20 00:52 05:48 RBC 3.21 L MCH 33 H Magnesium 3.40 H 4.10 H 07/21/18 07/21/18 12:39 18:24 RBC MCH Magnesium 4.50 H 4.80 H
[2018-07-25] MEDS: LACTATED RINGERS 1,000 ML IV SCH ×2 (00:36→12:47)
[2018-07-25] MEDS: PROCARDIA*For Tocolysis only PO SCH ×4 (00:36→18:37)
[2018-07-25] MEDS: AMPICILLIN/NS 1 GM/50 ML 1 GM/50 ML BAG IV SCH ×4 (06:03→18:34)
--- NOTE | 2018-07-25 10:01 | Progress Note ---
Assessment and Plan Assessment/Plans: .Twin gestation at 26 weeks and 3 days with labor and advanced cervical dilatation. Cervix remains unchanged as per VE (07/24/18) Patient currently denies any contractions. Magnesium sulfate for neuroprotection. Procardia for tocolysis. IV ampicillin for GBS prophylaxis. Continue inpatient management. .Advanced maternal age. Subjective - Subjective Date of service: 07/25/18 Principal diagnosis: labor Interval history: Pt is a 37 year old , EDC 10/23/18 at 26 3/7 weeks with Di/Di twin gestation who was admitted with contractions and advanced cervical dilatation of 4 cm. She received IV antibiotics, steroids for FLM and IV Magnesium sulfate for neuroprotection. She denies any contractions or fluid leakage. She reports good movement. APA and NICU consults were done. Objective - Vital Signs Vital Signs: Vital Signs - 12hr 07/25/18 07/25/18 07/25/18 00:41 00:44 00:49 Temperature Pulse Rate 90 82 82 Respiratory Rate Blood Pressure 120/55 Blood Pressure [Left] O2 Sat by Pulse 95 95 Oximetry 07/25/18 07/25/18 07/25/18 00:54 00:55 00:58 Temperature 98.1 F Pulse Rate 86 95 H Respiratory 16 Rate Blood Pressure Blood Pressure [Left] O2 Sat by Pulse 94 95 Oximetry 07/25/18 07/25/18 07/25/18 01:04 01:09 01:14 Temperature Pulse Rate 96 H 94 H 91 H Respiratory Rate Blood Pressure Blood Pressure [Left] O2 Sat by Pulse 95 94 94 Oximetry 07/25/18 07/25/18 07/25/18 01:19 01:20 01:24 Temperature Pulse Rate 92 H 96 H 87 Respiratory Rate Blood Pressure Blood Pressure [Left] O2 Sat by Pulse 94 94 94 Oximetry 07/25/18 07/25/18 07/25/18 01:25 01:29 01:33 Temperature Pulse Rate 88 87 86 Respiratory Rate Blood Pressure Blood Pressure [Left] O2 Sat by Pulse 93 96 94 Oximetry 07/25/18 07/25/18 07/25/18 01:34 03:49 07:43 Temperature Pulse Rate 86 76 85 Respiratory Rate Blood Pressure 114/57 104/55 Blood Pressure [Left] O2 Sat by Pulse 94 Oximetry 03/18/19 03/18/19 03/18/19 07:45 09:24 09:29 Temperature 97.9 F Pulse Rate 85 90 99 H Respiratory 18 Rate Blood Pressure Blood Pressure 104/55 [Left] O2 Sat by Pulse 97 97 Oximetry 07/25/18 07/25/18 07/25/18 09:34 09:39 09:44 Temperature Pulse Rate 90 94 H 90 Respiratory Rate Blood Pressure Blood Pressure [Left] O2 Sat by Pulse 96 97 96 Oximetry 07/25/18 07/25/18 07/25/18 09:49 09:54 09:59 Temperature Pulse Rate 97 H 95 H 89 Respiratory Rate Blood Pressure Blood Pressure [Left] O2 Sat by Pulse 97 96 95 Oximetry - Exam Cardiovascular: Normal S1, Normal S2 Lungs: Clear to auscultation Vulva: both: normal FHR: category 1 Uterine Contraction Monitor Mode: External Uterine Contraction Pattern: Absent Deep Tendon Reflex Grade: Normal +2 - Labs Labs: Abnormal Labs 07/20/18 07/21/18 07/21/18 21:20 00:52 05:48 RBC 3.21 L MCH 33 H Magnesium 3.40 H 4.10 H 07/21/18 07/21/18 12:39 18:24 RBC MCH Magnesium 4.50 H 4.80 H - Results US- obstetric: report reviewed
--- NOTE | 2018-07-25 10:06 | Progress Note ---
Assessment and Plan ASSESSMENT: IUP AT 26.5 WEEKS per [facility]ON of 10/26/18 TWIN GESTATION DI/DI per [facility] assessment AMA previously declined amnio NIPT screened Low Risk Dizygotic with fractions of 6.6% and 5.5% Morbid obesity RH negative ( documented by [facility] lab O negative with negative antibody screen ) History of C/S with + 07/20/18 [facility] US Twin A and Twin B with BPP of 8/8 07/20/18 Twin A Transverse position 07/20/18 Twin B variable position between cephalic and transerve ADVANCED CERVICAL DILATION reported 6 cm dilation S/P STEROIDS FOR LUNG MATURITY S/P MAGNESIUM SULFATE FOR NEUROPROTECTION ANTIBIOTICS FOR PROPHYLAXIS Procardia as tocolytic agent in progress Occasional ctx noted . PLAN: In agreement of continued in patient status Continuous toco NST Q 8 hrs Obtain EFW of twin gestation today Due to advanced dilation provide RhoGam today Obtain NICU consult Document her GTT screen Plan of care for delivery previously discussed with patient [facility] TO FOLLOW. With concerns or further evaluation please call the construction cost estimator provider- Dr. Diaz Subjective - Subjective Principal diagnosis: labor Patient reports: other (37yo 26.5 wks twin gestation managed for labor. She is received magnesium sulfate for neuroprotection, steroids and IV antibiotics for GBS prophylaxis. She reports occasional ctx and twin movements. Patient denies VB, decrease in twin movement , LOF, pelvic pressure, and ABD pain ) Objective - Vital Signs Vital Signs: Vital Signs - 12hr 07/25/18 07/25/18 07/25/18 00:41 00:44 00:49 Temperature Pulse Rate 90 82 82 Respiratory Rate Blood Pressure 120/55 Blood Pressure [Left] O2 Sat by Pulse 95 95 Oximetry 07/25/18 07/25/18 07/25/18 00:54 00:55 00:58 Temperature 98.1 F Pulse Rate 86 95 H Respiratory 16 Rate Blood Pressure Blood Pressure [Left] O2 Sat by Pulse 94 95 Oximetry 07/25/18 07/25/18 07/25/18 01:04 01:09 01:14 Temperature Pulse Rate 96 H 94 H 91 H Respiratory Rate Blood Pressure Blood Pressure [Left] O2 Sat by Pulse 95 94 94 Oximetry 07/25/18 07/25/18 07/25/18 01:19 01:20 01:24 Temperature Pulse Rate 92 H 96 H 87 Respiratory Rate Blood Pressure Blood Pressure [Left] O2 Sat by Pulse 94 94 94 Oximetry 07/25/18 07/25/18 07/25/18 01:25 01:29 01:33 Temperature Pulse Rate 88 87 86 Respiratory Rate Blood Pressure Blood Pressure [Left] O2 Sat by Pulse 93 96 94 Oximetry 07/25/18 07/25/18 07/25/18 01:34 03:49 07:43 Temperature Pulse Rate 86 76 85 Respiratory Rate Blood Pressure 114/57 104/55 Blood Pressure [Left] O2 Sat by Pulse 94 Oximetry 07/25/18 07/25/18 07/25/18 07:45 09:24 09:29 Temperature 97.9 F Pulse Rate 85 90 99 H Respiratory 18 Rate Blood Pressure Blood Pressure 104/55 [Left] O2 Sat by Pulse 97 97 Oximetry 07/25/18 07/25/18 07/25/18 09:34 09:39 09:44 Temperature Pulse Rate 90 94 H 90 Respiratory Rate Blood Pressure Blood Pressure [Left] O2 Sat by Pulse 96 97 96 Oximetry 07/25/18 07/25/18 07/25/18 09:49 09:54 09:59 Temperature Pulse Rate 97 H 95 H 89 Respiratory Rate Blood Pressure Blood Pressure [Left] O2 Sat by Pulse 97 96 95 Oximetry - Exam Breasts: deferred Cardiovascular: Regular rate Lungs: Normal air movement Abdomen: Present: other (gravid ). Absent: tenderness, guarding Uterus: Present: other (NT ) Uterine Contraction Monitor Mode: External Uterine Contraction Pattern: Irregular Uterine Contraction Intensity: Mild Extremities: normal - Labs Labs: Abnormal Labs 07/20/18 07/21/18 07/21/18 21:20 00:52 05:48 RBC 3.21 L MCH 33 H Magnesium 3.40 H 4.10 H 07/21/18 07/21/18 12:39 18:24 RBC MCH Magnesium 4.50 H 4.80 H - Results US- obstetric: report reviewed (report from 07/20/18 previously reviewed . See chart for full report )
[2018-07-25] MEDS: FEOSOL PO SCH (10:22)
[2018-07-25] MEDS: PRENATAL VITAMIN PO SCH (10:22)
--- NOTE | 2018-07-25 16:36 | Consultation ---
Consult Note - Parent Education I met with parent(s) and discussed the following:: Need for NICU admission, Poss ible need for intubation and surfactant or other resp support, Temperature regulation, Head ultrasounds to evaluate IVH, Eye exams for ROP screening, Possible need for IV fluids/TPN and IV antibiotics, Possible need for umbilical lines, Importance of providing breast milk & encouraged pumping aft delivery, Donor breast milk if baby meets criteria after , Slow feeding advancement and monitoring of tolerance. NG/OG feeds, Data for survival & survival without significant co-morbidities Parent(s) demonstrated understanding of all the information:: Yes Additional Comment: 27 week di-di twin gestaion with advanced dilation at risk of labor Assessment and Plan - Assessment Gestation:: 27 (weeks) Estimated Weight: A: 891g, B: 1170g - Plan Plan: Agree with Mag & steroids Will attend delivery Please call NICU with questions
[2018-07-26] MEDS: PROCARDIA*For Tocolysis only PO SCH ×5 (01:14→18:13)
[2018-07-26] MEDS: FEOSOL PO SCH ×3 (01:15→22:00)
[2018-07-26] MEDS: AMPICILLIN/NS 1 GM/50 ML 1 GM/50 ML BAG IV SCH ×4 (03:28→16:15)
--- NOTE | 2018-07-26 08:51 | Progress Note ---
Assessment and Plan - Patient Problems (1) 26 weeks gestation of Onset Date: 07/20/18 Current Visit: Yes Status: Acute Plan to address problem: lung maturity- steroid course complete Continue bedrest. [facility] consult done. Continue expectant management. GBS negative - ampicillin stopped. Will restart for if signs of labor present. (2) Twin gestation in third trimester Onset Date: 07/20/18 Current Visit: Yes Status: Acute Qualifiers: Multiple gestation type: unable to determine placenta and amniotic sac number Qualified Code(s): O30.093 - Twin , unable to determine number of placenta and number of amniotic sacs, third trimester Plan to address problem: Malpresentation. 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 (3) labor Current Visit: Yes Status: Acute Plan to address problem: Continue Procardia 10mg PO Q6hrs for tocolysis. Subjective - Subjective Principal diagnosis: labor Interval history: 37yo 26 4/7 wks twin gestation managed for labor. She reports good movement, no loss of fluid and no vaginal bleeding. She feels occasional contractions but states the Procardia helps. Patient reports: other (37yo 26.5 wks twin gestation managed for labor. She is received magnesium sulfate for neuroprotection, randal roids and IV antibiotics for GBS prophylaxis. She reports occasional ctx and twin movements. Patient denies VB, decrease in twin movement , LOF, pelvic pressure, and ABD pain ) Objective - Vital Signs Vital Signs: Vital Signs - 12hr 07/26/18 07/26/18 07/26/18 01:04 01:11 08:02 Temperature 98.1 F 98.0 F Pulse Rate 87 87 81 Respiratory 16 18 Rate Blood Pressure 113/59 103/50 Blood Pressure 113/59 [Left] - Labs Labs: Abnormal Labs 07/20/18 07/21/18 07/21/18 21:20 00:52 05:48 RBC 3.21 L MCH 33 H Magnesium 3.40 H 4.10 H 07/21/18 07/21/18 12:39 18:24 RBC MCH Magnesium 4.50 H 4.80 H
[2018-07-26] MEDS: COLACE PO SCH ×3 (10:10→22:00)
[2018-07-26] MEDS: PRENATAL VITAMIN PO SCH (10:43)
[2018-07-26] MEDS: LACTATED RINGERS 1,000 ML IV SCH ×2 (12:23→20:53)
--- NOTE | 2018-07-26 23:10 | Ultrasound Report ---
PROCEDURE: US OB VELOCIMETRY UMBILCAL ART TECHNIQUE: Real-time limited sonographic examination was performed for evaluation of for each fetus with image documentation (1 or more fetuses). HISTORY: labor COMPARISONS: None FINDINGS: Umbilical artery S/D ratio is 2.8 with normal waveforms. Resistive index is 0.7. IMPRESSION: Umbilical artery S/D ratio is 2.8 with normal waveforms. Resistive index is 0.7. This document is electronically signed by Shane Khan MD., July 26 2018 11:08:30 PM ET
--- NOTE | 2018-07-26 23:18 | Ultrasound Report ---
PROCEDURE: US OB FOLLOW UP TECHNIQUE: Real-time sonography performed for focused follow-up or re-evaluation of each size/ growth parameters and amniotic fluid or re-evaluation of suspected or confirmed abnormality on prior imaging. HISTORY: EFW twins; please do both babies COMPARISONS: July 20, 2017 . FINDINGS: FETUS A: Position: Cephalic . Placental position: Not evaluated Amniotic fluid volume: Normal . Heart rate and rhythm: 148 BPM, Regular . anatomic survey: Not evaluated . MEASUREMENTS BPD: 6.47 cm corresponding to 26 weeks and 1 day . HC: 24.43 cm corresponding to 26 weeks and 4 days . AC: 21.72 cm corresponding to 26 weeks 1 day . FL: 4.74 cm corresponding to 25 weeks and 6 days . Mean Gestational Age (composite criteria): 26 weeks and 1 day . Ratio biometry: Normal . Estimated Weight: 891 grams +/- 132 grams. ounces +/- .ounces. percentile. Interval growth: Appropriate . Estimated Due Date (earliest scan): 10/30/2018 . FETUS B: Position: Transverse . Placental position: Not evaluated Amniotic fluid volume: Normal . Heart rate and rhythm: 148 BPM, Regular . anatomic survey: Not evaluated . MEASUREMENTS BPD: 6.89 cm corresponding 27 weeks 5 days . HC: 24.94 cm corresponding to 27 weeks 1 day . AC: 24.66 cm corresponding to 28 weeks and 6 days . FL: 5 cm corresponding to 27 weeks 1 day . Mean Gestational Age (composite criteria): 27 weeks and 5 days . Ratio biometry: Normal . Estimated Weight: 1170 grams +/- 173 grams. ounces +/- .ounces. percentile. Interval growth: Appropriate . Estimated Due Date (earliest scan): 10/19/2018 . IMPRESSION: Twin intrauterine as described. This document is electronically signed by Shane Khan MD., July 26 2018 11:15:48 PM ET
--- NOTE | 2018-07-26 23:19 | Ultrasound Report ---
PROCEDURE: US OB VELOCIMETRY UMBILICAL ART TECHNIQUE: Real-time limited sonographic examination was performed for evaluation of umbilical arter y for each fetus with image documentation (1 or more fetuses). HISTORY: labor . Twin . COMPARISONS: None FINDINGS: FETUS B: Umbilical artery SD ratio is 2.5 with normal waveforms. Resistive index 0.6 IMPRESSION: Umbilical artery SD ratio is 2.5 with normal waveforms. Resistive index 0.6 This document is electronically signed by Shane Khan MD., July 26 2018 11:17:06 PM ET
[2018-07-27] MEDS: PROCARDIA*For Tocolysis only PO SCH ×4 (06:00→18:07)
[2018-07-27] MEDS: LACTATED RINGERS 1,000 ML IV SCH ×3 (06:31→21:13)
[2018-07-27] MEDS: FEOSOL PO SCH ×2 (09:27→21:13)
[2018-07-27] MEDS: COLACE PO SCH ×2 (09:27→21:13)
[2018-07-27] MEDS: PRENATAL VITAMIN PO SCH (09:27)
--- NOTE | 2018-07-27 09:54 | Progress Note ---
Assessment and Plan - Patient Problems (1) 26 weeks gestation of Onset Date: 07/20/18 Current Visit: Yes Status: Acute (2) Dichorionic diamniotic twin gestation Current Visit: Yes Status: Acute (3) labor Current Visit: Yes Status: Acute Plan to address problem: Continue inpatient management. Keep patient on bedrest. Magnesium was discontinued. Procardia Q6 hrs for tocolysis. Celestone for FLM completed. [facility] and NICU consults done. (4) Malpresentation of fetus Current Visit: Yes Status: Acute Qualifiers: malpresentation type: transverse lie Subjective - Subjective Date of service: 07/27/18 Principal diagnosis: labor Interval history: Pt is a 37 year old , EDC 10/23/18 at 26 5/7 weeks with Di/Di twin gestation who was admitted with contractions and advanced cervical dilatation of 4 cm. She received IV antibiotics, steroids for FLM completed and IV Magnesium sulfate for neuroprotection, discontinued. She denies any contractions or fluid leakage. She reports good movement. [facility] and NICU consults were done. Patient reports: other (37yo 26.5 wks twin gestation managed for labor. She is received magnesium sulfate for neuroprotection, steroids and IV antibiotics for GBS prophylaxis. She reports occasional ctx and twin movements. Patient denies VB, decrease in twin movement , LOF, pelvic pressure, and ABD pain ) Objective - Vital Signs Vital Signs: Vital Signs - 12hr 07/27/18 08:16 Pulse Rate 83 Blood Pressure 102/50 - Exam Cardiovascular: Normal S1, Normal S2 Lungs: Clear to auscultation Vulva: both: normal FHR: category 1 Uterine Contraction Monitor Mode: External Uterine Contraction Pattern: Absent Deep Tendon Reflex Grade: Normal +2 - Labs Labs: Abnormal Labs 07/20/18 07/21/18 07/21/18 21:20 00:52 05:48 RBC 3.21 L MCH 33 H Magnesium 3.40 H 4.10 H 07/21/18 07/21/18 12:39 18:24 RBC MCH Magnesium 4.50 H 4.80 H - Results US- obstetric: report reviewed
[2018-07-27 18:28] LABS: Bacteria,Urine 2+ /HPF (Negative); Bilirubin,Urine NEG (Negative); Blood,Urine NEG (Negative); Color,Urine Yellow (Yellow); Mucus,Urine FEW /HPF; Protein,Urine <15 mg/dL mg/dL (Negative); Urobilinogen,Urine < 2.0 mg/dL (<2.0)
[2018-07-28] MEDS: PROCARDIA*For Tocolysis only PO SCH ×4 (00:08→23:58)
[2018-07-28] MEDS: LACTATED RINGERS 1,000 ML IV SCH ×2 (05:21→15:18)
--- NOTE | 2018-07-28 11:11 | Progress Note ---
Assessment and Plan - Patient Problems (1) 26 weeks gestation of Onset Date: 07/20/18 Current Visit: Yes Status: Acute (2) Dichorionic diamniotic twin gestation Current Visit: Yes Status: Acute (3) labor Current Visit: Yes Status: Acute Plan to address problem: Continue inpatient management. Keep patient on bedrest. Magnesium was discontinued. Procardia Q6 hrs for tocolysis. Celestone for FLM completed. [facility] and NICU consults done. (4) Malpresentation of fetus Current Visit: Yes Status: Acute Qualifiers: malpresentation type: transverse lie Subjective - Subjective Date of service: 07/28/18 Principal diagnosis: labor Interval history: Pt is a 37 year old , EDC 10/23/18 at 27 weeks with Di/Di twin gestation who was admitted with contractions and advanced cervical dilatation of 4 cm. She received IV antibiotics, steroids for FLM completed and IV Magnesium sulfate for neuroprotection, discontinued. She denies any contractions or fluid leakage. She reports good movement. [facility] and NICU consults were done. Patient reports: other (37yo 26.5 wks twin gestation managed for labor. She is received magnesium sulfate for neuroprotection, steroids and IV antibiotics for GBS prophylaxis. She reports occasional ctx and twin movements. Patient denies VB, decrease in twin movement , LOF, pelvic pressure, and ABD pain ) Objective - Vital Signs Vital Signs: Vital Signs - 12hr 07/28/18 07/28/18 07/28/18 00:09 00:10 04:40 Temperature Pulse Rate 89 89 77 Respiratory 18 Rate Blood Pressure 111/53 100/54 Blood Pressure 111/53 [Left] 07/28/18 07/28/18 04:43 10:12 Temperature 96.3 F L Pulse Rate 77 78 Respiratory 16 Rate Blood Pressure 114/54 Blood Pressure 100/54 [Left] - Exam Cardiovascular: Normal S1, Normal S2 Lungs: Clear to auscultation Vulva: both: normal FHR: category 1 Uterine Contraction Monitor Mode: External Uterine Contraction Pattern: Absent Deep Tendon Reflex Grade: Normal +2 - Labs Labs: Abnormal Labs 07/20/18 07/21/18 07/21/18 21:20 00:52 05:48 RBC 3.21 L MCH 33 H Magnesium 3.40 H 4.10 H Urine pH 07/21/18 07/21/1819 12:39 18:24 16:58 RBC MCH Magnesium 4.50 H 4.80 H Urine pH 8.0 H Laboratory Results - last 24 hr 07/27/18 16:58 Urine Color Yellow Urine Turbidity Clear Urine pH 8.0 H Ur Specific [place] 1.005 Urine Protein <15 mg/dl Urine Glucose (UA) Neg Urine Ketones Neg Urine Blood Neg Urine Nitrite Neg Urine Bilirubin Neg Urine Urobilinogen < 2.0 Ur Leukocyte Esterase Sm Urine WBC (Auto) 6.0 Urine RBC (Auto) 5.0 U Epithel Cells (Auto) 2.0 Urine Bacteria (Auto) 2+ Urine Mucus Few
[2018-07-28 11:54] LABS: Basophils % (Auto) 0.3 % (0.0-1.8); Eosinophils # (Auto) 0.1 K/mm3 (0.0-0.4); Eosinophils % (Auto) 0.7 % (0.0-4.3); Hematocrit 33.6 % (30.3-42.9); Hemoglobin 11.5 gm/dl (10.1-14.3); Lymphocytes # (Auto) 1.6 K/mm3 (1.2-5.4); Lymphocytes % (Auto) 18.5 % (13.4-35.0); Mean Corpuscular HGB Conc 34 % (30-34); Mean Corpuscular Volume 96 fl (79-97); Monocytes # (Auto) 0.5 K/mm3 (0.0-0.8); Monocytes % (Auto) 6.2 % (0.0-7.3); Platelet Count 236 K/mm3 (140-440); Red Blood Count 3.51 M/mm3 (3.65-5.03); Red Cell Distribution Width 13.4 % (13.2-15.2)
--- NOTE | 2018-07-28 13:50 | Consultation ---
History of Present Illness Consult date: 07/28/18 Requesting physician: SOURAV PASTRANA History of present illness: ASSESSMENT: IUP AT 27 4/7 WEEKS per [facility] of 10/26/18 by [facility]- Nurse reports [facility]ON 10/23/18 - ??? US Done at [facility] 07/25/18 - They were using QUINTON of 10/19/18 Twin A 891 grams - 10% Twin B 1170 grams -76% I am using nurses QUINTON of 10/23/18 - Will need to determine most accurate QU[facility]ON Please have Radiology Also Calculate EFW Percentiles Doing well no complaints TWIN GESTATION DI/DI per [facility] assessment AMA previously declined amnio NIPT screened Low Risk Dizygotic with fractions of 6.6% and 5.5% Morbid obesity RH negative ( documented by [facility] lab O negative with negative antibody screen ) History of C/S with + 07/20/18 [facility] US Twin A and Twin B with BPP of 8/8 07/20/18 Twin A Transverse position 07/20/18 Twin B variable position between cephalic and transerve [facility] US Twin A Vtx Twin B Transverse ADVANCED CERVICAL DILATION reported 6 cm dilation S/P STEROIDS FOR LUNG MATURITY S/P MAGNESIUM SULFATE FOR NEUROPROTECTION ANTIBIOTICS FOR PROPHYLAXIS Procardia as tocolytic agent in progress Occasional ctx noted . PLAN: In agreement of continued in patient status Continuous toco NST Q 8 hrs Reviewed EFW of twin gestation from 07/25/18 they were using QUINTON of 10/19/18 - Will review earliest US if done at [facility] or OB's to determine Correct QUINTON Discussed with Ashley VELASCO and will try to determine earliest US Obtain NICU consult Document her GTT screen (early 1 Hour GTT was 05/12/18 - 139) will check HbA1c and repeat 1 hour GTT Plan of care for delivery previously discussed with patient [facility] TO FOLLOW. Past History Past Medical History: no pertinent history Past Surgical History: section - Obstetrical History : 6 Medications and Allergies Allergies Allergy/AdvReac Type Severity Reaction Status Date / Time No Known Allergies Allergy Unverified 07/20/18 18:13 Home Medications Medication Instructions Recorded Confirmed Last Taken Type Pnv,Calcium 72/Iron/Folic Acid 1 tab PO DAILY 07/21/18 07/21/18 07/20/18 09:00 History [ Vitamin Plus Low Iron] 1tab Active Meds: Active Medications Acetaminophen (Tylenol) 650 mg PO Q4H PRN PRN Reason: Pain MILD(1-3)/Fever >100.5/HEWITT Last Admin: 07/22/18 21:49 Dose: 650 mg Documented by: Docusate Sodium (Colace) 100 mg PO BID [facility] Last Admin: 07/27/18 21:13 Dose: 100 mg Documented by: Ferrous Sulfate (Feosol) 325 mg PO BID [facility] Last Admin: 07/27/18 21:13 Dose: 325 mg Documented by: Lactated Ringer's (Lactated Ringers) 1,000 mls @ 125 mls/hr IV DIRECT [facility] Last Admin: 07/28/18 05:21 Dose: 75 mls/hr Documented by: Multivitamins/Iron/Calcium ( Vitamin) 1 each PO QDAY [facility] Last Admin: 07/27/18 09:27 Dose: 1 each Documented by: Nifedipine (Procardia*For Tocolysis Only*) 10 mg PO Q6HR [facility] Last Admin: 07/28/18 05:19 Dose: 10 mg Documented by: Ondansetron HCl (Zofran) 4 mg IV Q6H PRN PRN Reason: Nausea And Vomiting Senna/Docusate Sodium (Senokot S) 2 tab PO Q12H PRN PRN Reason: Laxative Effect Simethicone (Mylicon) 80 mg PO Q6H PRN PRN Reason: Gas pain - Vital Signs Vital signs: Vital Signs Pulse BP 92 H 120/57 07/20/18 18:23 07/20/18 18:23 Temp Pulse Resp BP Pulse Ox 96.3 F L 78 16 114/54 97 07/28/18 04:43 07/28/18 10:12 07/28/18 04:43 07/28/18 10:12 07/26/18 16:10 Results Result Diagrams: 07/28/18 11:02 Abnormal lab results 07/27/18 07/28/18 Range/Units 16:58 11:02 RBC 3.51 L (3.65-5.03) M/mm3 MCH 33 H (28-32) pg Seg Neutrophils % 74.3 H (40.0-70.0) % Urine pH 8.0 H (5.0-7.0) All other labs normal.
[2018-07-28] MEDS: FEOSOL PO SCH ×2 (15:19→21:45)
[2018-07-28] MEDS: COLACE PO SCH ×2 (15:19→21:45)
[2018-07-28] MEDS: PRENATAL VITAMIN PO SCH (15:19)
[2018-07-29] MEDS: PROCARDIA*For Tocolysis only PO SCH ×3 (05:18→18:00)
[2018-07-29] MEDS: LACTATED RINGERS 1,000 ML IV SCH ×2 (05:20→20:56)
--- NOTE | 2018-07-29 05:42 | Ultrasound Report ---
PROCEDURE: US OB FOLLOWUP EA ADD GESTAT TECHNIQUE: Real-time sonography performed for focused follow-up or re-evaluation of each size/ growth parameters and amniotic fluid or re-evaluation of suspected or confirmed abnormality on prior imaging. HISTORY: TWINS COMPARISONS: July 20, 2017 . FINDINGS: FETUS A: Position: Cephalic . Placental position: Not evaluated Amniotic fluid volume: Normal . Heart rate and rhythm: 148 BPM, Regular . anatomic survey: Not evaluated . MEASUREMENTS BPD: 6.47 cm corresponding to 26 weeks and 1 day . HC: 24.43 cm corresponding to 26 weeks and 4 days . AC: 21.72 cm corresponding to 26 weeks 1 day . FL: 4.74 cm corresponding to 25 weeks and 6 days . Mean Gestational Age (composite criteria): 26 weeks and 1 day . Ratio biometry: Normal . Estimated Weight: 891 grams +/- 132 grams. ounces +/- .ounces. percentile. Interval growth: Appropriate . Estimated Due Date (earliest scan): 10/30/2018 . FETUS B: Position: Transverse . Placental position: Not evaluated Amniotic fluid volume: Normal . Heart rate and rhythm: 148 BPM, Regular . anatomic survey: Not evaluated . MEASUREMENTS BPD: 6.89 cm corresponding 27 weeks 5 days . HC: 24.94 cm corresponding to 27 weeks 1 day . AC: 24.66 cm corresponding to 28 weeks and 6 days . FL: 5 cm corresponding to 27 weeks 1 day . Mean Gestational Age (composite criteria): 27 weeks and 5 days . Ratio biometry: Normal . Estimated Weight: 1170 grams +/- 173 grams. ounces +/- .ounces. percentile. Interval growth: Appropriate . Estimated Due Date (earliest scan): 10/19/2018 . IMPRESSION: Twin intrauterine as described. This document is electronically signed by Shane Khan MD., July 29 2018 05:40:22 AM ET
--- NOTE | 2018-07-29 09:14 | Progress Note ---
Assessment and Plan - Patient Problems (1) 26 weeks gestation of Onset Date: 07/20/18 Current Visit: Yes Status: Acute Plan to address problem: lung maturity- steroid course complete Continue bedrest. [facility] consult done. Continue expectant management. GBS negative - ampicillin stopped. Will restart for if signs of labor present. (2) Twin gestation in third trimester Onset Date: 07/20/18 Current Visit: Yes Status: Acute Qualifiers: Multiple gestation type: unable to determine placenta and amniotic sac number Qualified Code(s): O30.093 - Twin , unable to determine number of placenta and number of amniotic sacs, third trimester Plan to address problem: Malpresentation. 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 (3) labor Current Visit: Yes Status: Acute Subjective - Subjective Principal diagnosis: labor Interval history: 37yo 26 4/7 wks twin gestation managed for labor. She reports good movement, no loss of fluid and no vaginal bleeding. She feels occasional contractions but states the Procardia helps. Patient reports: other (37yo 26.5 wks twin gestation managed for labor. She is received magnesium sulfate for neuroprotection, steroids and IV antibiotics for GBS prophylaxis. She reports occasional ctx and twin movements. Patient denies VB, decrease in twin movement , LOF, pelvic pressure, and ABD pain ) Objective - Vital Signs Vital Signs: Vital Signs - 12hr 07/29/18 07/29/18 07/29/18 00:00 00:01 05:20 Temperature 98.1 F Pulse Rate 84 84 82 Respiratory 16 18 Rate Blood Pressure 98/50 112/55 Blood Pressure 98/50 112/55 [Left] 07/29/18 09:08 Temperature Pulse Rate 77 Respiratory Rate Blood Pressure 105/52 Blood Pressure [Left] - Labs Labs: Abnormal Labs 07/20/18 07/21/18 07/21/18 21:20 00:52 05:48 RBC 3.21 L MCH 33 H Seg Neutrophils % Magnesium 3.40 H 4.10 H Urine pH 07/21/18 07/21/18 07/27/18 12:39 18:24 16:58 RBC MCH Seg Neutrophils % Magnesium 4.50 H 4.80 H Urine pH 8.0 H 07/28/18 11:02 RBC 3.51 L MCH 33 H Seg Neutrophils % 74.3 H Magnesium Urine pH Laboratory Results - last 24 hr 07/28/18 07/28/18 11:02 15:32 WBC 8.4 RBC 3.51 L Hgb 11.5 Hct 33.6 MCV 96 MCH 33 H MCHC 34 RDW 13.4 Plt Count 236 Lymph % (Auto) 18.5 [place] % (Auto) 6.2 Eos % (Auto) 0.7 Baso % (Auto) 0.3 Lymph # 1.6 [place] # 0.5 Eos # 0.1 Baso # 0.0 Seg Neutrophils % 74.3 H Seg Neutrophils # 6.3 Blood Type O NEGATIVE Antibody Screen Negative Screen Cancelled
[2018-07-29] MEDS: COLACE PO SCH ×2 (10:24→22:14)
[2018-07-29] MEDS: FEOSOL PO SCH ×2 (10:24→22:14)
[2018-07-29] MEDS: PRENATAL VITAMIN PO SCH (10:24)
[2018-07-30] MEDS: PROCARDIA*For Tocolysis only PO SCH ×6 (00:13→23:40)
[2018-07-30] MEDS: PRENATAL VITAMIN PO SCH (10:32)
[2018-07-30] MEDS: COLACE PO SCH ×2 (10:32→21:29)
[2018-07-30] MEDS: FEOSOL PO SCH ×2 (10:34→21:29)
[2018-07-30] MEDS: LACTATED RINGERS 1,000 ML IV SCH (12:06)
--- NOTE | 2018-07-30 13:44 | Progress Note ---
Assessment and Plan - Patient Problems (1) 26 weeks gestation of Onset Date: 07/20/18 Current Visit: Yes Status: Acute (2) Dichorionic diamniotic twin gestation Current Visit: Yes Status: Acute (3) labor Current Visit: Yes Status: Acute Plan to address problem: Continue inpatient management. Keep patient on bedrest. Magnesium was discontinued. Procardia Q6 hrs for tocolysis. Celestone for FLM completed. APA and NICU consults done. (4) Malpresentation of fetus Current Visit: Yes Status: Acute Qualifiers: malpresentation type: transverse lie Subjective - Subjective Date of service: 07/30/18 Principal diagnosis: Twins gestaion at 27 weeks with labor Interval history: Pt is a 37 year old , EDC 10/23/18 at 27 weeks with Di/Di twin gestation who was admitted with contractions and advanced cervical dilatation of 4 cm. She received IV antibiotics, steroids for FLM completed and IV Magnesium sulfate for neuroprotection, discontinued. She denies any contractions or fluid leakage. She reports good movement. APA and NICU consults were done. Patient reports: other (37yo 26.5 wks twin gestation managed for labor. She is received magnesium sulfate for neuroprotection, steroids and IV antibiotics for GBS prophylaxis. She reports occasional ctx and twin movements. Patient denies VB, decrease in twin movement , LOF, pelvic pressure, and ABD pain ) Objective - Vital Signs Vital Signs: Vital Signs - 12hr 07/30/18 07/30/18 07/30/18 04:15 04:19 08:30 Temperature 98.1 F 97.7 F Pulse Rate 79 80 Respiratory 18 18 Rate Blood Pressure 98/51 91/42 07/30/18 12:05 Temperature 98.5 F Pulse Rate 88 Respiratory 18 Rate Blood Pressure 106/57 - Exam Cardiovascular: Normal S1, Normal S2 Lungs: Clear to auscultation Vulva: both: normal FHR: category 1 Uterine Contraction Monitor Mode: External Uterine Contraction Pattern: Absent Deep Tendon Reflex Grade: Normal +2 - Labs Labs: Abnormal Labs 07/20/18 07/21/18 07/21/18 21:20 00:52 05:48 RBC 3.21 L MCH 33 H Seg Neutrophils % Magnesium 3.40 H 4.10 H Urine pH 07/21/18 07/21/18 07/27/18 12:39 18:24 16:58 RBC MCH Seg Neutrophils % Magnesium 4.50 H 4.80 H Urine pH 8.0 H 07/28/18 11:02 RBC 3.51 L MCH 33 H Seg Neutrophils % 74.3 H Magnesium Urine pH Laboratory Results - last 24 hr 07/28/18 15:32 Blood Type O NEGATIVE Antibody Screen Negative Screen Cancelled - Results US- obstetric: report reviewed
[2018-07-31] MEDS: LACTATED RINGERS 1,000 ML IV SCH ×2 (03:05→12:07)
[2018-07-31] MEDS: PROCARDIA*For Tocolysis only PO SCH ×3 (06:04→18:27)
[2018-07-31] MEDS: COLACE PO SCH ×2 (10:19→22:11)
[2018-07-31] MEDS: FEOSOL PO SCH ×2 (10:19→22:14)
[2018-07-31] MEDS: PRENATAL VITAMIN PO SCH (10:19)
--- NOTE | 2018-07-31 13:07 | Progress Note ---
Assessment and Plan - Patient Problems (1) 26 weeks gestation of Onset Date: 07/20/18 Current Visit: Yes Status: Acute (2) Dichorionic diamniotic twin gestation Current Visit: Yes Status: Acute (3) labor Current Visit: Yes Status: Acute Plan to address problem: Continue inpatient management. Keep patient on bedrest. Magnesium was discontinued. Procardia Q6 hrs for tocolysis. Celestone for FLM completed. APA and NICU consults done. (4) Malpresentation of fetus Current Visit: Yes Status: Acute Qualifiers: malpresentation type: transverse lie Subjective - Subjective Date of service: 07/31/18 Principal diagnosis: Twins gestaion at 27 weeks with labor Interval history: Pt is a 37 year old , EDC 10/23/18 at 27 weeks with Di/Di twin gestation who was admitted with contractions and advanced cervical dilatation of 4 cm. She received IV antibiotics, steroids for FLM completed and IV Magnesium sulfate for neuroprotection, discontinued. She denies any contractions or fluid leakage. She reports good movement. APA and NICU consults were done. Patient reports: other (37yo 26.5 wks twin gestation managed for labor. She is received magnesium sulfate for neuroprotection, steroids and IV antibiotics for GBS prophylaxis. She reports occasional ctx and twin movements. Patient denies VB, decrease in twin movement , LOF, pelvic pressure, and ABD pain ) Objective - Exam Cardiovascular: Normal S1, Normal S2 Lungs: Clear to auscultation Vulva: both: normal FHR: category 1 Uterine Contraction Monitor Mode: External Uterine Contraction Pattern: Absent Deep Tendon Reflex Grade: Normal +2 - Labs Labs: Abnormal Labs 07/20/18 07/21/18 07/21/18 21:20 00:52 05:48 RBC 3.21 L MCH 33 H Seg Neutrophils % Magnesium 3.40 H 4.10 H Urine pH 07/21/18 07/21/18 07/27/18 12:39 18:24 16:58 RBC MCH Seg Neutrophils % Magnesium 4.50 H 4.80 H Urine pH 8.0 H 07/28/18 11:02 RBC 3.51 L MCH 33 H Seg Neutrophils % 74.3 H Magnesium Urine pH - Results US- obstetric: report reviewed
[2018-08-01] MEDS: PROCARDIA*For Tocolysis only PO SCH ×4 (08:15→23:15)
--- NOTE | 2018-08-01 09:21 | Progress Note ---
Assessment and Plan - Patient Problems (1) 26 weeks gestation of Onset Date: 07/20/18 Current Visit: Yes Status: Acute Plan to address problem: Now 28 weeks. lung maturity- steroid course complete Continue bedrest. APA consult done. Continue expectant management. GBS negative - ampicillin stopped. Will restart for if signs of labor present. (2) Twin gestation in third trimester Onset Date: 07/20/18 Current Visit: Yes Status: Acute Qualifiers: Multiple gestation type: unable to determine placenta and amniotic sac number Qualified Code(s): O30.093 - Twin , unable to determine number of placenta and number of amniotic sacs, third trimester Plan to address problem: Malpresentation. vertex/transverse 07/25. Repeat US 08/01. (3) labor Current Visit: Yes Status: Acute Plan to address problem: Continue Procardia 10mg PO Q6hrs for tocolysis. Subjective - Subjective Principal diagnosis: Twins gestaion at 28 weeks with labor Interval history: 37yo 28 1/7 wks twin gestation managed for labor. She reports good movement, no loss of fluid and no vaginal bleeding. She feels occasional contractions but states the Procardia helps. Patient reports: other (37yo 26.5 wks twin gestation managed for labor. She is received magnesium sulfate for neuroprotection, steroids and IV antibiotics for GBS prophylaxis. She reports occasional ctx and twin movements. Patient denies VB, decrease in twin movement , LOF, pelvic pressure, and ABD pain ) Objective - Vital Signs Vital Signs: Vital Signs - 12hr 08/01/18 08/01/18 08:17 08:20 Temperature 97.6 F Pulse Rate 80 80 Respiratory 18 Rate Blood Pressure 103/54 Blood Pressure 103/54 [Left] - Labs Labs: Abnormal Labs 07/20/18 07/21/18 07/21/18 21:20 00:52 05:48 RBC 3.21 L MCH 33 H Seg Neutrophils % Magnesium 3.40 H 4.10 H Urine pH 07/21/18 07/21/18 07/27/18 12:39 18:24 16:58 RBC MCH Seg Neutrophils % Magnesium 4.50 H 4.80 H Urine pH 8.0 H 07/28/18 11:02 RBC 3.51 L MCH 33 H Seg Neutrophils % 74.3 H Magnesium Urine pH
[2018-08-01] MEDS: PRENATAL VITAMIN PO SCH (10:17)
[2018-08-01] MEDS: COLACE PO SCH ×2 (10:17→21:37)
[2018-08-01] MEDS: FEOSOL PO SCH ×2 (10:17→21:37)
--- NOTE | 2018-08-01 13:40 | Consultation ---
History of Present Illness Consult date: 08/01/18 Requesting physician: SOURAV PASTRANA History of present illness: Di/Di Twins with Advanced Dilation BPP earlier today - Results Pending Denies reg contractions Denies vag bleeding Pos FM's EFM Categ I X 2 Prior [facility] US done 07/25/18 (if using QU[facility]ON 10/23/18) (Radiology was using QU[facility]ON 10/19/18) Twin A 891grams at 10% Twin B 1170 grams at 76% Past History Past Medical History: no pertinent history Past Surgical History: section - Obstetrical History : 6 Medications and Allergies Allergies Allergy/AdvReac Type Severity Reaction Status Date / Time No Known Allergies Allergy Unverified 07/20/18 18:13 Home Medications Medication Instructions Recorded Confirmed Last Taken Type Pnv,Calcium 72/Iron/Folic Acid 1 tab PO DAILY 07/21/18 07/21/18 07/20/18 09:00 History [ Vitamin Plus Low Iron] 1tab Active Meds: Active Medications Acetaminophen (Tylenol) 650 mg PO Q4H PRN PRN Reason: Pain MILD(1-3)/Fever >100.5/[facility] Last Admin: 07/22/18 21:49 Dose: 650 mg Documented by: Docusate Sodium (Colace) 100 mg PO BID [facility] Last Admin: 08/01/18 10:17 Dose: 100 mg Documented by: Ferrous Sulfate (Feosol) 325 mg PO BID [facility] Last Admin: 08/01/18 10:17 Dose: 325 mg Documented by: Lactated Ringer's (Lactated Ringers) 1,000 mls @ 125 mls/hr IV DIRECT [facility] Last Admin: 07/31/18 12:07 Dose: 75 mls/hr Documented by: Multivitamins/Iron/Calcium ( Vitamin) 1 each PO QDAY [facility] Last Admin: 08/01/18 10:17 Dose: 1 each Documented by: Nifedipine (Procardia*For Tocolysis Only*) 10 mg PO Q6HR [facility] Last Admin: 08/01/18 12:56 Dose: 10 mg Documented by: Ondansetron HCl (Zofran) 4 mg IV Q6H PRN PRN Reason: Nausea And Vomiting Senna/Docusate Sodium (Senokot S) 2 tab PO Q12H PRN PRN Reason: Laxative Effect Simethicone (Mylicon) 80 mg PO Q6H PRN PRN Reason: Gas pain - Vital Signs Vital signs: Vital Signs Pulse BP 92 H 120/57 07/20/18 18:23 07/20/18 18:23 Temp Pulse Resp BP Pulse Ox 97.6 F 84 18 116/57 97 08/01/18 08:17 08/01/18 12:41 08/01/18 08:17 08/01/18 12:41 07/26/18 16:10 Results Result Diagrams: 07/28/18 11:02 All other labs normal. Assessment and Plan 1. Di/Di Twins at 28 1/7 weeks (Utilizing QUINTON from nurses of 10/23/18) 2. Advanced Dilation 3. Twin B Borderline IUGR 4. AMA 5. MO 6. RH Neg Recommendations 1. BPP with Cord arterial Dopplers twice per week 2. US for growth q 3 weeks 3. S/P Steroids 4. Continue conservative management
--- NOTE | 2018-08-01 14:41 | Ultrasound Report ---
ULTRASOUND OB LIMITED History: Presentation for twin gestation Technique: Transabdominal ultrasound with Doppler interrogation. Gestation: Baby A Position: Breech Amniotic Fluid: Normal VINCENT = 5.2 cm largest vertical pocket Heart Rate: 147 BPM Gestation: Baby B Position: Transverse with head to maternal right Amniotic Fluid: Normal VINCENT = 6.5 cm largest vertical pocket Heart Rate: 138 BPM
--- NOTE | 2018-08-01 14:42 | Ultrasound Report ---
ULTRASOUND BIOPHYSICAL PROFILE: History: well being Technique: Transabdominal ultrasound with Doppler interrogation. Baby A 2 - breathing movements 2 - movements 2 - posture and tone 2 - Qualitative amniotic fluid volume 8 - TOTAL SCORE OF POSSIBLE 8 Heart Rate (bpm) 141 Baby B 2 - breathing movements 2 - movements 2 - posture and tone 2 - Qualitative amniotic fluid volume 8 - TOTAL SCORE OF POSSIBLE 8 Heart Rate (bpm) 141
[2018-08-01] MEDS: LACTATED RINGERS 1,000 ML IV SCH (21:00)
[2018-08-02] MEDS: LACTATED RINGERS 1,000 ML IV SCH ×2 (03:32→21:08)
[2018-08-02] MEDS: PROCARDIA*For Tocolysis only PO SCH ×2 (05:49→11:59)
--- NOTE | 2018-08-02 09:53 | Progress Note ---
Assessment and Plan - Patient Problems (1) 26 weeks gestation of Onset Date: 07/20/18 Current Visit: Yes Status: Acute (2) Dichorionic diamniotic twin gestation Current Visit: Yes Status: Acute (3) labor Current Visit: Yes Status: Acute Plan to address problem: Continue inpatient management. Keep patient on bedrest. Magnesium was discontinued. Procardia Q6 hrs for tocolysis. Celestone for FLM completed. APA and NICU consults done. (4) Malpresentation of fetus Current Visit: Yes Status: Acute Qualifiers: malpresentation type: transverse lie Subjective - Subjective Date of service: 08/02/18 Principal diagnosis: Twins gestaion at 28 weeks with labor Interval history: Pt is a 37 year old , EDC 10/23/18 at 28 weeks with Di/Di twin gestation who was admitted with contractions and advanced cervical dilatation of 4 cm. She received IV antibiotics, steroids for FLM completed and IV Magnesium sulfate for neuroprotection, discontinued. She denies any contractions or fluid leakage. She reports good movement. APA and NICU consults were done. Sonogram on 08/01/18 showed babies to be breech/ROT, BPP wnl for both babies. Patient reports: other (37yo 26.5 wks twin gestation managed for labor. She is received magnesium sulfate for neuroprotection, steroids and IV antibiotics for GBS prophylaxis. She reports occasional ctx and twin movements. Patient denies VB, decrease in twin movement , LOF, pelvic pressure, and ABD pain ) Objective - Vital Signs Vital Signs: Vital Signs - 12hr 08/01/18 08/01/18 08/02/18 23:11 23:13 03:30 Temperature 98.4 F 98.2 F Pulse Rate 82 81 79 Respiratory 18 20 Rate Blood Pressure 86/40 103/51 Blood Pressure 86/40 103/51 [Right] O2 Sat by Pulse 97 Oximetry 08/02/18 08/02/18 08:58 09:00 Temperature Pulse Rate 77 77 Respiratory Rate Blood Pressure 75/38 79/44 Blood Pressure [Right] O2 Sat by Pulse Oximetry - Exam Cardiovascular: Normal S1, Normal S2 Lungs: Clear to auscultation Vulva: both: normal FHR: category 1 Uterine Contraction Monitor Mode: External Uterine Contraction Pattern: Absent Deep Tendon Reflex Grade: Normal +2 - Labs Labs: Abnormal Labs 07/20/18 07/21/18 07/21/18 21:20 00:52 05:48 RBC 3.21 L MCH 33 H Seg Neutrophils % Magnesium 3.40 H 4.10 H Urine pH 07/21/18 07/21/18 07/27/18 12:39 18:24 16:58 RBC MCH Seg Neutrophils % Magnesium 4.50 H 4.80 H Urine pH 8.0 H 07/28/18 11:02 RBC 3.51 L MCH 33 H Seg Neutrophils % 74.3 H Magnesium Urine pH - Results US- obstetric: report reviewed
[2018-08-02] MEDS: FEOSOL PO SCH ×2 (12:00→21:09)
[2018-08-02] MEDS: COLACE PO SCH ×2 (12:00→21:09)
[2018-08-02] MEDS: PRENATAL VITAMIN PO SCH (12:00)
--- NOTE | 2018-08-02 12:38 | Consultation ---
History of Present Illness Consult date: 08/02/18 Reason for consult: other (Jenni twins with PTL) History of present illness: Ms. Cohen is a 37 year old , EDC 10/23/18 at 28 weeks with Di/Di twin gestation admitted to [facility] for PTL and advanced cervical dilatation. She is s/p Magnesium Sulfate for neuroprotection and Steriods for lung maturity. She previously received antibiotics for unknown GBS status- negative. She denies any PTL symptoms, bleeding, and leaking of fluid. She reports positive movement x 2 . She denies preeclampsia symptoms. She is without complaints toda y. Past History Past Medical History: no pertinent history Past Surgical History: section - Obstetrical History : 6 Medications and Allergies Allergies Allergy/AdvReac Type Severity Reaction Status Date / Time No Known Allergies Allergy Unverified 07/20/18 18:13 Home Medications Medication Instructions Recorded Confirmed Last Taken Type Pnv,Calcium 72/Iron/Folic Acid 1 tab PO DAILY 07/21/18 07/21/18 07/20/18 09:00 History [ Vitamin Plus Low Iron] 1tab Active Meds: Active Medications Acetaminophen (Tylenol) 650 mg PO Q4H PRN PRN Reason: Pain MILD(1-3)/Fever >100.5/[facility] Last Admin: 07/22/18 21:49 Dose: 650 mg Documented by: Docusate Sodium (Colace) 100 mg PO BID [facility] Last Admin: 08/02/18 12:00 Dose: 100 mg Documented by: Ferrous Sulfate (Feosol) 325 mg PO BID [facility] Last Admin: 08/02/18 12:00 Dose: 325 mg Documented by: Lactated Ringer's (Lactated Ringers) 1,000 mls @ 125 mls/hr IV DIRECT [facility] Last Admin: 08/02/18 03:32 Dose: 75 mls/hr Documented by: Multivitamins/Iron/Calcium ( Vitamin) 1 each PO QDAY [facility] Last Admin: 08/02/18 12:00 Dose: 1 each Documented by: Nifedipine (Procardia*For Tocolysis Only*) 10 mg PO Q6HR [facility] Last Admin: 08/02/18 11:59 Dose: 10 mg Documented by: Ondansetron HCl (Zofran) 4 mg IV Q6H PRN PRN Reason: Nausea And Vomiting Senna/Docusate Sodium (Senokot S) 2 tab PO Q12H PRN PRN Reason: Laxative Effect Simethicone (Mylicon) 80 mg PO Q6H PRN PRN Reason: Gas pain Review of Systems Constitutional: other (denies fever, chills, fatigue) Eyes: other (denies visual distrubances) Ears, nose, mouth and throat: deferred Cardiovascular: other (denies chest pain, palpitations, edema) Respiratory: other (denies SOB, wheezing, coughing) Breasts: deferred Gastrointestinal: other (denies constipation, diarrhea, abdominal pain) Genitourinary: other (denies leaking of fluid, bleeding, and contractions) Rectal Exam: deferred Integumentary: deferred Neurological: other (denies headaches) - Vital Signs Vital signs: Vital Signs Pulse BP 92 H 120/57 07/20/18 18:23 07/20/18 18:23 Temp Pulse Resp BP Pulse Ox 98.2 F 83 20 111/52 97 08/02/18 03:30 08/02/18 11:54 08/02/18 03:30 08/02/18 11:54 08/02/18 03:30 - Physical Exam Breasts: Positive: deferred Cardiovascular: Regular rate, Normal S1, Normal S2 Lungs: Positive: Clear to auscultation, Normal air movement Abdomen: Positive: soft, other (gravid, nontender) Results Result Diagrams: 07/28/18 11:02 All other labs normal. Assessment and Plan A- Jenni Twin IUP at 28.2 weeks gestation- [facility] 10/23/18 Fetus A BPP 8/8, Fetus B BPP 8/8 ( 08/01/18) Growth ultrasound not performed- last growth on 07/25/18-using [facility] 10/19/18- Twin A 891grams at 10%,Twin B 1170 grams at 76% Denies leaking of fluid, bleeding, and contractions Positive movements Nifedipine for tocolysis S/P Magnesium sulfate for neuroprotection S/P Steriods for lung maturity GBS negative Advanced dilation- 4-6cm Rh negative- s/p Rhogam MO AMA- Negative NIPT P- Continue with current plan of care/ conservative management Continuous toco monitoring monitoring Q8hrs Monitor for symptomatic hypotension with Nifedipine tocolysis Monitor for PTL symptoms, leaking of fluid, and bleeding BPP and dopplers twice weekly (Wednesday and )
[2018-08-03] MEDS: PROCARDIA*For Tocolysis only PO SCH ×5 (00:10→19:00)
--- NOTE | 2018-08-03 08:20 | Progress Note ---
Assessment and Plan - Patient Problems (1) 26 weeks gestation of Onset Date: 07/20/18 Current Visit: Yes Status: Acute (2) Dichorionic diamniotic twin gestation Current Visit: Yes Status: Acute (3) labor Current Visit: Yes Status: Acute Plan to address problem: Continue inpatient management. Keep patient on bedrest. Magnesium was discontinued. Procardia Q6 hrs for tocolysis. Celestone for FLM completed. APA and NICU consults done. (4) Malpresentation of fetus Current Visit: Yes Status: Acute Qualifiers: malpresentation type: transverse lie Subjective - Subjective Date of service: 08/03/18 Principal diagnosis: Twins gestaion at 28 weeks with labor Interval history: Pt is a 37 year old , EDC 10/23/18 at 28 weeks with Di/Di twin gestation who was admitted with contractions and advanced cervical dilatation of 4 cm. She received IV antibiotics, steroids for FLM completed and IV Magnesium sulfate for neuroprotection, discontinued. She denies any contractions or fluid leakage. She reports good movement. APA and NICU consults were done. Sonogram on 08/01/18 showed babies to be breech/ROT, BPP wnl for both babies. Patient reports: other (37yo 26.5 wks twin gestation managed for labor. She is received magnesium sulfate for neuroprotection, steroids and IV antibiotics for GBS prophylaxis. She reports occasional ctx and twin movements. Patient denies VB, decrease in twin movement , LOF, pelvic pressure, and ABD pain ) Objective - Vital Signs Vital Signs: Vital Signs - 12hr 08/02/18 08/02/18 08/03/18 20:55 20:57 06:08 Temperature 98.4 F Pulse Rate 85 80 76 Blood Pressure 104/52 114/56 90/55 Blood Pressure 90/55 [Right] - Exam Cardiovascular: Normal S1, Normal S2 Lungs: Clear to auscultation Vulva: both: normal FHR: category 1 Uterine Contraction Monitor Mode: External Uterine Contraction Pattern: Absent Deep Tendon Reflex Grade: Normal +2 - Labs Labs: Abnormal Labs 07/20/18 07/21/18 07/21/18 21:20 00:52 05:48 RBC 3.21 L MCH 33 H Seg Neutrophils % Magnesium 3.40 H 4.10 H Urine pH 07/21/18 07/21/18 07/27/18 12:39 18:24 16:58 RBC MCH Seg Neutrophils % Magnesium 4.50 H 4.80 H Urine pH 8.0 H 07/28/18 11:02 RBC 3.51 L MCH 33 H Seg Neutrophils % 74.3 H Magnesium Urine pH - Results US- obstetric: report reviewed
[2018-08-03] MEDS: FEOSOL PO SCH ×2 (10:30→21:03)
[2018-08-03] MEDS: COLACE PO SCH ×2 (10:30→21:05)
[2018-08-03] MEDS: PRENATAL VITAMIN PO SCH (10:30)
[2018-08-04] MEDS: PROCARDIA*For Tocolysis only PO SCH ×3 (00:27→12:31)
[2018-08-04] MEDS: COLACE PO SCH ×2 (10:24→21:23)
[2018-08-04] MEDS: FEOSOL PO SCH ×2 (10:24→21:22)
[2018-08-04] MEDS: PRENATAL VITAMIN PO SCH (10:24)
--- NOTE | 2018-08-04 12:24 | Progress Note ---
Assessment and Plan - Patient Problems (1) Dichorionic diamniotic twin gestation Current Visit: Yes Status: Acute (2) 28 weeks gestation of Current Visit: Yes Status: Acute (3) labor Current Visit: Yes Status: Acute Plan to address problem: Continue inpatient management. Keep patient on bedrest. Magnesium was discontinued. Procardia Q6 hrs for tocolysis. Celestone for FLM completed. APA and NICU consults done. Subjective - Subjective Date of service: 08/04/18 Principal diagnosis: Twins gestaion at 28 weeks with labor Interval history: Pt is a 37 year old , EDC 10/23/18 at 28 weeks and 4 days gestation with Di/Di twin gestation who was admitted with contractions and advanced cervical dilatation of 4 cm. She received IV antibiotics, steroids for FLM completed and IV Magnesium sulfate for neuroprotection, discontinued. She denies any contractions or fluid leakage. She reports good movement. APA and NICU consults were done. Sonogram on 08/01/18 showed babies to be breech/ROT, BPP wnl for both babies. Patient reports: other (37yo 26.5 wks twin gestation managed for labor. She is received magnesium sulfate for neuroprotection, steroids and IV antibiotics for GBS prophylaxis. She reports occasional ctx and twin movements. Patient denies VB, decrease in twin movement , LOF, pelvic pressure, and ABD pain ) Objective - Vital Signs Vital Signs: Vital Signs - 12hr 08/04/18 08/04/18 09:06 11:44 Pulse Rate 90 81 Blood Pressure 113/53 96/48 - Exam Cardiovascular: Normal S1, Normal S2 Lungs: Clear to auscultation Vulva: both: normal FHR: category 1 Uterine Contraction Monitor Mode: External Uterine Contraction Pattern: Absent Deep Tendon Reflex Grade: Normal +2 - Labs Labs: Abnormal Labs 07/20/18 07/21/18 07/21/18 21:20 00:52 05:48 RBC 3.21 L MCH 33 H Seg Neutrophils % Magnesium 3.40 H 4.10 H Urine pH 07/21/18 07/21/18 07/27/18 12:39 18:24 16:58 RBC MCH Seg Neutrophils % Magnesium 4.50 H 4.80 H Urine pH 8.0 H 07/28/18 11:02 RBC 3.51 L MCH 33 H Seg Neutrophils % 74.3 H Magnesium Urine pH - Results US- obstetric: report reviewed
[2018-08-05] MEDS: PROCARDIA*For Tocolysis only PO SCH ×3 (00:27→14:50)
--- NOTE | 2018-08-05 09:20 | Progress Note ---
Assessment and Plan - Patient Problems (1) Twin gestation in third trimester Onset Date: 07/20/18 Current Visit: Yes Status: Acute Qualifiers: Multiple gestation type: unable to determine placenta and amniotic sac number Qualified Code(s): O30.093 - Twin , unable to determine number of placenta and number of amniotic sacs, third trimester (2) Generalized pruritus Current Visit: Yes Status: Acute Plan to address problem: Order LFTs and bile acids rule out cholestasis of Order Benadryl for symptomatic relief (3) 28 weeks gestation of Current Visit: Yes Status: Acute Plan to address problem: Order 1hr OGTT Current presentation Twin A Breech Twin B Transverse. Twin A BPP 8/8 Twin B BPP 8/8 Subjective - Subjective Principal diagnosis: Twins gestaion at 28 weeks with labor Interval history: 37yo 28 1/7 wks twin gestation managed for labor. She reports good movement, no loss of fluid and no vaginal bleeding. She feels occasional contractions but states the Procardia helps. Patient reports: other (37yo 28 4/7 wks twin gestation managed for labor, advanced cervical dilation. She is received magnesium sulfate for neuroprotection, steroids and IV antibiotics for GBS prophylaxis. She reports occasional ctx and good movement of both twins. Patient denies VB, decrease in twin movement , LOF, pelvic pressure, and ABD pain Today she complains of generalized itching. ) Objective - Vital Signs Vital Signs: Vital Signs - 12hr 08/05/18 08/05/18 08/05/18 00:24 00:25 06:16 Temperature 98.6 F Pulse Rate 83 80 88 Blood Pressure 81/39 110/54 Blood Pressure 97/45 [Right] 08/05/18 08/05/18 09:10 09:11 Temperature Pulse Rate 85 82 Blood Pressure 93/43 108/56 Blood Pressure [Right] - Labs Labs: Abnormal Labs 07/20/18 07/21/18 07/21/18 21:20 00:52 05:48 RBC 3.21 L MCH 33 H Seg Neutrophils % Magnesium 3.40 H 4.10 H Urine pH 07/21/18 07/21/18 07/27/18 12:39 18:24 16:58 RBC MCH Seg Neutrophils % Magnesium 4.50 H 4.80 H Urine pH 8.0 H 07/28/18 11:02 RBC 3.51 L MCH 33 H Seg Neutrophils % 74.3 H Magnesium Urine pH
[2018-08-05] MEDS ORDERED: BENADRYL PO PRN (09:30)
[2018-08-05 11:01] LABS: Albumin 3.2 g/dL (3.9-5); Bilirubin,Direct 0.5 mg/dL (0-0.2)
[2018-08-05] MEDS: FEOSOL PO SCH (14:49)
[2018-08-05] MEDS: COLACE PO SCH (14:51)
[2018-08-05] MEDS: PRENATAL VITAMIN PO SCH (14:51)
[2018-08-05] MEDS ORDERED: REGLAN IV ONE (18:22)
[2018-08-05] MEDS ORDERED: BICITRA PO ONE (18:22)
[2018-08-05] MEDS ORDERED: PEPCID IV ONE (18:22)
[2018-08-05 18:40] LABS: Basophils % (Auto) 0.4 % (0.0-1.8); Eosinophils % (Auto) 0.4 % (0.0-4.3); Hematocrit 36.2 % (30.3-42.9); Hemoglobin 12.6 gm/dl (10.1-14.3); Lymphocytes # (Auto) 1.2 K/mm3 (1.2-5.4); Lymphocytes % (Auto) 11.4 % (13.4-35.0); Mean Corpuscular HGB Conc 35 % (30-34); Mean Corpuscular Volume 94 fl (79-97); Monocytes # (Auto) 0.7 K/mm3 (0.0-0.8); Monocytes % (Auto) 6.8 % (0.0-7.3); Platelet Count 258 K/mm3 (140-440); Red Blood Count 3.84 M/mm3 (3.65-5.03); Red Cell Distribution Width 14.1 % (13.2-15.2)
[2018-08-05] MEDS ORDERED: SUBLIMAZE ONE (18:50)
[2018-08-05] MEDS ORDERED: NACL 0.9% IR ONE (19:00)
[2018-08-05] MEDS ORDERED: LACTATED RINGERS 1,000 ML IV SCH (19:00)
[2018-08-05] MEDS ORDERED: WATER FOR IRRIG STERILE IR ONE (19:00)
[2018-08-05] MEDS ORDERED: PITOCin/NS 20 UNIT/1000ML DRIP 20 UNITS/1,000 ML BAG IV SCH ×2 (19:00→21:00)
[2018-08-05] MEDS ORDERED: ANCEF/STERILE WATER 2 GM/20 ML 2 GM/20 ML SYRINGE IV NR (19:00)
[2018-08-05] MEDS ORDERED: ZOFRAN ONE (19:00)
[2018-08-05] MEDS ORDERED: NEO SYNEPHRINE/NS Syringe(OR USE) IV ONE (19:00)
[2018-08-05] MEDS ORDERED: ROBINUL ONE (19:05)
--- NOTE | 2018-08-05 20:50 | Event Note ---
I was called to the attention of Room 2002 that was fully dilated, bulging membranes and malpresentation. STAT csection was called secondary to malpresentation in imminent labor. Mother as previously consented on risk, benefits and alternatives to csection. Efforts were made to see if tubal sterilization papers were previously signed but were not available in chart or in office and this was relayed to the patient.
[2018-08-05] MEDS ORDERED: NARCAN 0.4 MG/1 ML IV PRN (20:53)
[2018-08-05] MEDS ORDERED: TUCKS PAD TP PRN (20:53)
[2018-08-05] MEDS ORDERED: LANSINOH TP PRN (20:53)
[2018-08-05] MEDS ORDERED: SODIUM CHLORIDE FLUSH SYRINGE 10 ML IV NR (21:00)
[2018-08-05] MEDS: MORPHINE IV PRN (21:26)
--- NOTE | 2018-08-05 21:49 | Operative Report ---
Operative Report Operative Report: PREOP Diagnosis 1. 28 4/7 weeks gestation 2. Dichorionic-diamnoitic twin gestation in labor 3. Malpresentation of Twin A 4. Malpresentation of Twin B 5. Class III Obesity Postop Diagnosis 1. 28 4/7 weeks gestation 2. Dichorionic-diamnoitic twin gestation in labor 3. Malpresentation of Twin A 4. Malpresentation of Twin B 5. Class III Obesity Procedure: Repeat CLASSICAL section Findings 1. Twin A - Viable female in the complete breech presentation, weighing 1240g APGARS 7 at 1 min, 9 at 5 min 2. Twin B - Viable male in the incomplete breech presentation, weighing 1370g APGARS 8 at 1 min, 9 at 5 min 3. Normal bilateral uterus, ovaries and fallopian tubes Surgeon 1. Galina Currie MD Anesthesia: 1. Spinal I/O: EBL: 1000ml Fluids: 2000ml UOP: 200ml Specimens removed: 1. Placenta - Twin A and Twin B Complications: none Disposition: Patient taken to recovery room in stable condition INDICATIONS: The patient is a 37yo at 28 4/7 weeks was managed on L&D for labor, advanced cervical dilation. She was noted to proceed to complete dilation with bulging membranes and breech presentation therefore the decision was made to proceed to a repeat section. The patient was consented and the risks including but not limited to bleeding, infections, injury to surrounding organs, potential injury to mother/infants, possible need for blood transfusion or hysterectomy were discussed. All questions were answered and informed consent signed. PROCEDURE: The patient was taken to the OR in stable condition. Adequate anesthesia was achieved with spinal anesthesia. A marrufo catheter was in placed. She wore SCDs for DVT prophylaxis. She received Ancef for infection prophylaxis. The patient was prepped and draped in the usual fashion and an additional time out was done. A Pfannestiel incision was made with the scalpel and taken down to the fascia. The fascia was incised and the incision extended laterally. The superior and inferior aspect of the rectus muscle was dissected off of the fascia. Entry into the peritoneum was achieved. The incision was extended cranially and caudally. An Gavin retractor was placed abdominally. A transverse incision in the uterine was made and extended laterally. membranes of Twin A were ruptured and noted to be clear. The fetus was noted to be in breech presentation. The left lower extremity was swept across abdomen and delivered, the body was then rotated and right lower extremity was delivered in the same fashion. The body and vertex then delivered spontaneously. Delayed cord clamping for 45sec was then done. Cord was clamped, fetus was bulb suctioned and handed off to awaiting pediatric staff. Attention was then turned to Twin B. membranes were ruptured and noted to be meconium stained. Twin B was in incomplete breech presentation. The presenting lower extremity was delivered, the contralateral lower extremity was swept across abdomen and delivered, torso was delivered and occiput flexed and head delivered. Delayed cord clamping was observered fro 45sec. Twin B's cord was clamped x 2, cut and fetus handed off to awaiting pediatric staff. Cord blood was collected from Cord A and B. The placenta was delivered intact. The uterus was cleaned of all clots the uterus was repaired with 0-Vicryl x 6 in multiple layers of interrupted stitch due to the dense myometrial layer. Pitocin 20unit IV was administered. The Gavin retractor was removed. The uterus was returned to the abdominal cavity. Tisseal fibrin sealant was applied to the hysterotomy to aid in hemostasis. The hysterotomy was observed and noted to be hemostatic. The peritoneum and rectus muscle was reapproximated with 2-0 Vicryl. Surgicel was placed at the left aspect of the incision anterior to the rectus muscle to aid in hemostasis. The fascia was closed with 0 Vicryl, subcutaneous layer closed with 2-0 Vicryl and the Skin was closed with 4-0 Vicryl. The patient tolerated the procedure well. All counts were correct x 3. Urine was noted to be clear at close of case. I was present and scrubbed for the entire procedure. The patient was taken to the recovery room in stable condition.
[2018-08-06] MEDS: MORPHINE IV PRN (01:19)
[2018-08-06] MEDS: COLACE PO SCH ×3 (03:37→22:11)
[2018-08-06] MEDS ORDERED: D5LR 1,000 ML IV SCH (04:13)
[2018-08-06] MEDS: PERCOCET 5/325 PO PRN ×3 (04:50→22:12)
[2018-08-06] MEDS: IBUPROFEN PO PRN ×3 (04:52→20:51)
[2018-08-06] MEDS: PRENATAL VITAMIN PO SCH (09:06)
[2018-08-06 09:23] LABS: Hematocrit 29.8 % (30.3-42.9); Hemoglobin 10.3 gm/dl (10.1-14.3)
--- NOTE | 2018-08-06 09:33 | Progress Note ---
Assessment and Plan A: /postop day 1 S/P repeat classical section for twin gestation with malpresentation. Anemia secondary to and blood loss. P: Patient to ambulate. Remove Mejias catheter. Advance diet as tolerated. Supplement with oral iron when tolerating regular diet. Subjective - Subjective Date of service: 08/06/18 Principal diagnosis: labor Interval history: /postop day 1 S/P repeat classical section twins. Doing well. Sitting on side of bed; getting ready to ambulate. Mejias catheter present, draining clear yellow urine. Patient reports she is passing gas. She denies nausea or vomiting. Patient denies headache, chest pain, shortness of breath, cough, or leg pain. Patient reports: appetite normal, pain well controlled, flatus, no nauseated : in NICU Objective - Vital Signs Latest vital signs: Vital Signs Temp Pulse Resp BP BP Pulse Ox 08/06/18 08:07 98.6 F 89 18 114/55 96 08/06/18 05:45 99 F 86 18 122/55 96 08/06/18 04:52 20 08/06/18 04:50 20 08/06/18 01:19 20 08/05/18 22:44 98.9 F 88 16 120/57 98 08/05/18 22:00 98.7 F 82 18 123/65 98 08/05/18 21:51 18 08/05/18 21:45 78 16 124/62 99 08/05/18 21:31 88 16 123/54 99 08/05/18 21:26 17 08/05/18 21:15 82 17 130/65 100 08/05/18 21:10 77 16 127/62 100 08/05/18 21:05 97.8 F 79 20 119/68 100 08/05/18 18:05 98.3 F 20 08/05/18 14:48 94 H 114/58 08/05/18 14:45 97 F L 18 Intake and Output 08/05/18 08/06/18 08/06/18 23:59 07:59 15:59 Intake Total 2200 480 Output Total 500 700 Balance 1700 -220 Intake: IV 2200 Oral 480 Output: Urine 500 700 Indwelling 200 Indwelling Catheter 700 Other: Total, Intake Amount 480 Total, Output Amount 700 Estimated Blood Loss 1,000 - Exam Cardiovascular: Present: Regular rate, Normal S1, Normal S2 Lungs: Present: Clear to auscultation Abdomen: Present: normal appearance, soft, normal bowel sounds. Absent: distention, tenderness, guarding, rigidity Uterus: Present: normal, firm, fundal height at umbilicus. Absent: bogginess, tenderness Extremities: Present: normal, edema (mild pedal edema bilaterally). Absent: tenderness Incision: Present: normal, dry, intact, dressed - Labs Labs: Abnormal lab results 08/05/18 08/05/18 08/06/18 Range/Units 10:13 18:30 08:54 Hct 29.8 L D (30.3-42.9) % MCH 33 H (28-32) pg MCHC 35 H (30-34) % Lymph % (Auto) 11.4 L (13.4-35.0) % Seg Neutrophils % 81.0 H (40.0-70.0) % Seg Neutrophils # 8.6 H (1.8-7.7) K/mm3 Direct Bilirubin 0.5 H (0-0.2) mg/dL Alkaline Phosphatase 219 H (35-129) units/L Albumin 3.2 L (3.9-5) g/dL
[2018-08-06] MEDS: FEOSOL PO SCH (22:12)
[2018-08-06] MEDS: MYLICON PO PRN (22:12)
[2018-08-07] MEDS: IBUPROFEN PO PRN ×3 (07:20→21:59)
[2018-08-07] MEDS: MYLICON PO PRN ×2 (10:23→21:59)
[2018-08-07] MEDS: PRENATAL VITAMIN PO SCH (10:23)
[2018-08-07] MEDS: PERCOCET 5/325 PO PRN ×2 (10:23→17:17)
[2018-08-07] MEDS: COLACE PO SCH ×2 (10:24→21:59)
--- NOTE | 2018-08-07 14:44 | Progress Note ---
Assessment and Plan A: day 2 S/P repeat classical section for twin gestation with malpresentation. Anemia secondary to and blood loss. P: Continue iron supplementation. Encouraged ambulation. Subjective - Subjective Principal diagnosis: labor Interval history: /postop day 2 S/P repeat classical section twins. Doing well. Patient reports she is voiding without difficulty, tolerating a regular diet, ambulating well, + flatus. Patient has no complaints. Patient reports: appetite normal, voiding normally, pain well controlled, flatus, ambulating normally, no dizzy ambulation, no nauseated : in NICU Objective - Vital Signs Latest vital signs: Vital Signs Temp Pulse Resp BP BP Pulse Ox 08/07/18 08:30 98.3 F 98 H 20 100/58 97 08/06/18 23:29 98.7 F 95 H 16 107/46 94 08/06/18 22:12 20 08/06/18 20:51 20 08/06/18 15:06 97.6 F 83 16 115/59 98 Intake and Output 08/06/18 08/07/18 08/07/18 23:59 07:59 15:59 Intake Total 300 500 Balance 300 500 Intake: Oral 200 Intake, Free Water 300 300 Other: Total, Intake Amount 200 - Exam Cardiovascular: Present: Regular rate, Normal S1, Normal S2 Lungs: Present: Clear to auscultation Abdomen: Present: normal appearance, soft, normal bowel sounds. Absent: distention, tenderness, guarding, rigidity Uterus: Present: normal, firm, fundal height below umbilicus. Absent: bogginess, tenderness Extremities: Present: normal, edema (mild bilateral pedal edema). Absent: tenderness Incision: Present: normal, dry, intact
[2018-08-07] MEDS: FEOSOL PO SCH (21:59)
[2018-08-08] MEDS: PERCOCET 5/325 PO PRN ×2 (02:30→09:42)
[2018-08-08] MEDS: IBUPROFEN PO PRN ×2 (09:41→17:13)
[2018-08-08] MEDS: COLACE PO SCH (09:42)
[2018-08-08] MEDS: PRENATAL VITAMIN PO SCH (09:42)
--- NOTE | 2018-08-08 10:47 | Progress Note ---
Assessment and Plan - Patient Problems (1) S/P section Current Visit: Yes Status: Acute Plan to address problem: s/p Repeat Classical C/S secondary to active labor and twin IUP in malpresentation POD 3 - stable Ambulation encouraged Abdominal Binder ordered Discharge to home today Follow up at [facility] in 1 week for incision check (2) Anemia due to blood loss, acute Current Visit: Yes Status: Acute Plan to address problem: Asymptomatic Continue iron therapy (3) Rh negative status during in second trimester Current Visit: Yes Status: Acute Subjective - Subjective Date of service: 08/08/18 Principal diagnosis: POD #3, S/P Repeat Classical C/S Interval history: see H&P, OB Progress Notes, Event Notes, Operative Report and PP/X [employer] Progress Notes Patient reports: appetite normal, voiding normally, pain well controlled, flatus, ambulating normally, no dizzy ambulation, no bowel movement : in NICU Objective - Vital Signs Latest vital signs: Vital Signs Temp Pulse Resp BP BP Pulse Ox 08/08/18 09:12 97.3 F L 89 16 107/54 99 08/07/18 23:54 98.7 F 81 16 107/54 95 08/07/18 16:13 98.6 F 91 H 20 121/71 99 Intake and Output 08/07/18 08/08/18 08/08/18 23:59 07:59 15:59 Intake Total 300 200 Balance 300 200 Intake: Oral 200 Intake, Free Water 300 Other: Total, Intake Amount 200 - Exam Cardiovascular: Present: Regular rate Lungs: Present: Clear to auscultation Abdomen: Present: normal appearance, soft Vulva: both: normal Uterus: Present: normal, firm, fundal height below umbilicus Extremities: Present: normal Incision: Present: normal, dry, intact, other (steri strips in place) Comments: scant lochia
--- NOTE | 2018-08-08 11:03 | Discharge Summary ---
Providers - Providers Date of Admission: 07/20/18 22:34 Date of discharge: 08/08/18 Attending physician: SOURAV PASTRANA MD Primary care physician: SOURAV PASTRANA MD Hospitalization Reason for admission: IUP - , labor, other (TIUP) Delivery: Procedure: section, vertical Episiotomy: none Laceration: none Incision: normal, dry, intact, other (steri strips in place) Other procedures: none complications: none Discharge diagnosis: delivery baby: twins (A: Female, B: Male) Hospital course: Uncomplicated Condition at discharge: Stable Disposition: DC-01 TO HOME OR SELFCARE - Discharge Diagnoses (1) S/P section Status: Acute (2) Anemia due to blood loss, acute Status: Acute Comment: Asymptomatic Continue iron therapy (3) Rh negative status during in second trimester Status: Acute Comment: RhoGam administered Plan - Discharge Medications Prescriptions: Ferrous Sulfate [Feosol 325 MG tab] 325 mg PO QDAY@2200 #30 tablet Ibuprofen 800 mg PO Q6H PRN 10 Days #30 tablet MDD 3200mg PRN Reason: Pain, Moderate (4-6) oxyCODONE /ACETAMINOPHEN [Percocet 5/325] 1 tab PO Q4HR PRN 14 Days #30 tab PRN Reason: Pain , Severe (7-10) - Provider Discharge Summary Activity: routine, no sex for 6 weeks, no heavy lifting 4 weeks, no strenuous exercise Diet: routine Instructions: routine Additional instructions: [] Smoking cessation referral if applicable(refer to patient education folder for contact #) [] Refer to [facility] Booklet Call your doctor immediately for: * Fever > 100.5 * Heavy vaginal bleeding ( >1 pad per hour) * Severe persistent headache * Shortness of breath * Reddened, hot, painful area to leg or breast * Drainage or odor from incision. * Keep incision clean and dry at all times and follow doctor's instructions regarding bathing/showering - Follow up plan Follow up: SOURAV PASTRANA MD [Primary Care Provider] - 7 Days (Follow up at [facility] in 1 week for incision check)
[2018-08-08 17:08] VITALS: BP 123/56
== END 2018-08-08 18:30 | disposition home or self-care (01) | DRG 765 ==
LOC: TRG 17:55 → LD 18:01 → TRG 18:13 → LD 18:13 → OBSVTOIN 22:34 → OB 08-05 22:45
PROVIDERS: ADMIT Obstetrics & Gynecology; ATTEND Obstetrics & Gynecology
PROC: 10D00Z0 Extraction of Products of Conception, High, Open Approach (ICD-10-PCS; principal; 2018-08-05)
PROC: 3E0234Z Introduction of Serum, Toxoid and Vaccine into Muscle, Percutaneous Approach (ICD-10-PCS; 2018-08-05)
DX: O60.13X2 Preterm labor second trimester with preterm delivery third trimester, fetus 2 (principal); D62 Acute posthemorrhagic anemia; O60.13X1 Preterm labor second trimester with preterm delivery third trimester, fetus 1; O36.5922 Maternal care for other known or suspected poor fetal growth, second trimester, fetus 2; O99.214 Obesity complicating childbirth; O32.2XX2 Maternal care for transverse and oblique lie, fetus 2; O99.02 Anemia complicating childbirth; O32.1XX1 Maternal care for breech presentation, fetus 1; O30.042 Twin pregnancy, dichorionic/diamniotic, second trimester; O26.893 Other specified pregnancy related conditions, third trimester; Z37.2 Twins, both liveborn; Z3A.26 26 weeks gestation of pregnancy; E66.01 Morbid (severe) obesity due to excess calories; Z67.41 Type O blood, Rh negative
CPT/HCPCS: 36415; 76815; 76816; 76819; 76820; 80076; 81001; 82239; 82731; 82951; 83735; 85014; 85018; 85025; 85027; 86592; 86850; 86870; 86900; 86901; 87116; 88307; G0378; C9250; J0290; J0690; J1100; J2270; J2370; J2405; J2590; J2765; J2790; J3010; J3475; J7120; J7121